=== PATIENT | female | born 1990 | race Caucasian/White ===

== ENCOUNTER 2016-12-08 08:53 | Emergency (ER) | payer MEDICAID ==
[2016-12-08] MEDS ORDERED: NS 0.9% 1000 ML* 1,000 ML IV ONE (09:10)
[2016-12-08] MEDS ORDERED: Morphine INJ* 2 MG/ML 1 ML CARPUJECT IV ONE (09:10)
[2016-12-08] MEDS ORDERED: Ondansetron ODT TAB* 4 MG PO ONE (09:10)
[2016-12-08 09:26] LABS: Hematocrit 30 % (35-47); Hemoglobin 9.6 g/dl (12.0-16.0); Mean Corpuscular HGB Conc 33 g/dl (31-36); Mean Corpuscular Hemoglobin 28 pg (27-31); Mean Corpuscular Volume 85 fL (80-97); Mean Platelet Volume 8 um3 (7.4-10.4); Red Blood Count 3.47 10^6/ul (4.0-5.4); Red Cell Distribution Width 14 % (10.5-15); White Blood Count 23.3 10^3/ul (3.5-10.8)
[2016-12-08 09:27] LABS: Comments Flag Yes
[2016-12-08 09:28] LABS: Add Diff/Slide Review? Slide Review Added
[2016-12-08 09:43] LABS: Albumin 3.3 g/dL (3.2-5.2); BUN/Creatinine Ratio 13.3 (8-20); C Reactive Protein 23.69 mg/L (< 5.00); Calcium 8.4 mg/dL (8.6-10.3); EGFR African American 216.6 (>60); EGFR Non-African American 168.4 (>60); Globulin 3.4 g/dL (2-4); Magnesium 1.7 mg/dL (1.9-2.7); Potassium 3.8 mmol/L (3.5-5.0); Total Bilirubin 0.3 mg/dL (0.2-1.0); Total Protein 6.7 g/dL (6.4-8.9)
--- NOTE | 2016-12-08 10:34 | RAD ---
INDICATION: Chest pain. COMPARISON: There are no prior studies available for comparison. TECHNIQUE: A portable view of the chest was obtained. FINDINGS: Cardiac and mediastinal contours appear to be within normal limits. The lungs are underinflated and grossly clear. No pleural effusion is seen. IMPRESSION: NO EVIDENCE FOR ACUTE FINDING.
--- NOTE | 2016-12-08 10:37 | RAD ---
Indication: 33 week with contractions. Real-time sonography of the was performed. There is a single intrauterine gestation in cephalic presentation. There is a posterior fundal placenta without evidence of placenta previa. heart activity is noted at 1 46 bpm. movement is noted. Amniotic fluid index is 15. The BPD measures 8.2 cm corresponding to gestational age of 33 weeks 1 day. Head to compress measures 29.9 cm corresponding to gestational age of 33 weeks 1 day. Abdominal circumference measures 28.8 cm corresponding to gestational age of 32 weeks 4 days. The femur length measures 6.2 cm corresponding to gestational age of 32 weeks 0 days. Estimated weight is 1992 g. This is at the 24th percentile. IMPRESSION: Single intrauterine gestation with a gestational age of 33 weeks 1 day determined by initial ultrasound. Estimated weight is 1992 g which is at the 24th percentile. Posterior fundal placenta without placenta previa.
[2016-12-08 10:48] VITALS: BP 124/76
[2016-12-08 11:23] LABS: Urine Bacteria Absent (Absent); Urine Bilirubin Negative (Negative); Urine Glucose Negative (Negative); Urine Nitrite Negative (Negative)
--- NOTE | 2016-12-09 15:41 | ED ---
Kay Chandra Auryana, scribed for Demetrius Posadas MD on 12/08/16 at 0938 . - HPI Summary HPI Summary: 26 year old female presents with labor contractions and chest pain. Patient reports that she has abdominal pressure and that the chest pain radiates to the back, shoulders, and up into her neck. She characterizes the pain as sharp and pressure -like. She reports that she has pain on inspiration and has had a cough x3 days. She denies any fever, nausea, or any vomiting. She reports that she has not had any previous episodes of these symptoms with previous pregnancies - with 1 miscarriage - currently 33 weeks . PMHx is significant for cholecystectomy, appendectomy, anxiety, RA (in back with oxycodone Rx). SHx is significant for tobacco use ( few cigarettes a day), but denies any alcohol, or any recreational drug use. Mother reports that she lost a previous child on the same date last year. 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 - History of Current Complaint Chief Complaint: EDOBProblems Stated Complaint: 33 WEEKS PREG Time Seen by Provider: 12/08/16 09:15 Hx Obtained From: Patient Chief Complaint: Concern for Demise, Pain Onset/Duration: Started Hours Ago - TODAY, Still Present Timing: Constant Severity: Moderate Current Severity: Severe Pain Intensity: 9 Location of Pain: Radiates to: - CHEST, SHOULDERS, AND NECK, Suprapubic - PRESSURE Character: Sharp - SHARP CHEST PRESSURE, Other: - PRESSURE-ABDOMINAL Associated Signs and Symptoms: Positive: Back Pain, Other: - PAIN ON INSPIRATION , AND COUGH - Assessment Hx Now: Yes SAB: 0 IEA: 1 - Additional Pertinent History Maternal Blood Type and Rh: O Positive - Allergies/Home Medications Allergies/Adverse Reactions: Allergies Allergy/AdvReac Type Severity Reaction Status Date / Time Adhesive Tape Allergy Rash Verified 12/08/16 12:29 Tramadol AdvReac Nausea And Verified 12/08/16 14:02 Vomiting PMH/Surg Hx/FS Hx/Imm Hx Endocrine/Hematology History: Denies: Hx Diabetes, Hx Thyroid Disease Cardiovascular History: Denies: Hx Hypertension Respiratory History: Denies: Hx Asthma, Hx Chronic Obstructive Pulmonary Disease (COPD) GI History: Reports: Other GI Disorders - Chronic Tonsillitis; Chronic Sinusitis ; Orthostatic Proteinuria Denies: Hx Ulcer Musculoskeletal History: Reports: Hx Back Problems Psychiatric History: Reports: Hx Anxiety, Hx Depression - Surgical History Surgery Procedure, Year, and Place: Cholecystectomy; Has had Endosocpies (Normal ) Infectious Disease History: Denies: Hx Clostridium Difficile, Hx Hepatitis, Hx Human Immunodeficiency Virus (HIV), Hx of Known/Suspected MRSA, Hx Shingles, Hx Tuberculosis, Hx Known/ Suspected VRE, Hx Known/Suspected VRSA, History Other Infectious Disease, Traveled Outside the [place] in Last 30 Days - Family History Known Family History: Positive: Cardiac Disease - [place], Hypertension, Diabetes - Social History Alcohol Use: None Substance Use Type: Reports: None Smoking Status (MU): Light Every Day Tobacco Smoker Type: Cigarettes Amount Used/How Often: 5 CIGS/DAY Length of Time of Smoking/Using Tobacco: 3+ YEARS Review of Systems Constitutional: Negative Negative: Fever Eyes: Negative ENT: Negative Positive: Chest Pain - radiates into the shoulders and neck Positive: Cough, Other - pain on inspiraiton Positive: Abdominal Pain - abdominal pressure. Negative: Vomiting, Nausea Genitourinary: Negative Positive: Other - BACK PAIN Skin: Negative Neurological: Negative Psychological: Normal All Other Systems Reviewed And Are Negative: Yes Physical Exam - Summary Physical Exam Summary: VITAL SIGNS: Reviewed. GENERAL: Patient is a well-developed and nourished female who is lying comfortable in the stretcher. Patient is not in any acute respiratory distress. Patient is anxious. HEAD AND FACE: Normocephalic and atraumatic. EYES: PERRLA, EOMI x 2, No injected conjunctiva. EARS: Hearing grossly intact. Ear canals and tympanic membranes are WNL. MOUTH: Oropharynx within normal limits. NECK: Supple, trachea is midline, no adenopathy, no JVD. CHEST: Symmetric. (+) REPRODUCTION OF CHEST PAIN ON BOTH EH LEFT AND RIGHT SIDE. LUNGS: Clear to auscultation bilaterally. No wheezing or crackles. CVS: RRR, S1 and S2 present, no murmurs or gallops appreciated. ABDOMEN: Soft and distention above the umbilical secondary to . Positive bowel sounds. No rebound no guarding, and no masses palpated. No abdominal bruit or pulsations. EXTREMITIES: FROM in all major joints, no edema, no cyanosis or clubbing. NEURO: Alert and oriented x 3. No acute neurological deficits. Speech is normal. SKIN: Dry and warm. - Physical Exam Triage Information Reviewed: Yes Vital Signs Reviewed: Yes Diagnostics - Vital Signs Vital Signs Temp Pulse Resp BP Pulse Ox 12/08/16 08:54 98.6 F 123 24 138/85 97 - Laboratory Lab Results: Lab Results 12/08/16 12/08/16 12/08/16 Range/Units 09:15 09:15 09:15 WBC 23.3 H (3.5-10.8) 10^3/ul RBC 3.47 L (4.0-5.4) 10^6/ul Hgb 9.6 L (12.0-16.0) g/dl Hct 30 L (35-47) % MCV 85 (80-97) fL MCH 28 (27-31) pg MCHC 33 (31-36) g/dl RDW 14 (10.5-15) % Plt Count 415 (150-450) 10^3/ul MPV 8 (7.4-10.4) um3 Neut % (Auto) 76.1 (38-83) % Lymph % (Auto) 15.6 L (25-47) % Archer % (Auto) 7.4 (1-9) % Eos % (Auto) 0.6 (0-6) % Baso % (Auto) 0.3 (0-2) % Absolute Neuts (auto) 17.7 H (1.5-7.7) 10^3/ul Absolute Lymphs (auto) 3.6 (1.0-4.8) 10^3/ul Absolute Monos (auto) 1.7 H (0-0.8) 10^3/ul Absolute Eos (auto) 0.1 (0-0.6) 10^3/ul Absolute Basos (auto) 0.1 (0-0.2) 10^3/ul Absolute Nucleated RBC 0.01 10^3/ul Nucleated RBC % 0.1 Sodium 132 L (133-145) mmol/L Potassium 3.8 (3.5-5.0) mmol/L Chloride 103 (101-111) mmol/L Carbon Dioxide 20 L (22-32) mmol/L Anion Gap 9 (2-11) mmol/L BUN 6 (6-24) mg/dL Creatinine 0.45 L (0.51-0.95) mg/dL Est GFR ( Amer) 216.6 (>60) Est GFR (Non-Af Amer) 168.4 (>60) BUN/Creatinine Ratio 13.3 (8-20) Glucose 89 (70-100) mg/dL Lactic Acid 0.9 (0.5-2.0) mmol/L Calcium 8.4 L (8.6-10.3) mg/dL Magnesium 1.7 L (1.9-2.7) mg/dL Total Bilirubin 0.30 (0.2-1.0) mg/dL AST 15 (13-39) U/L ALT 10 (7-52) U/L Alkaline Phosphatase 138 H (34-104) U/L C-Reactive Protein 23.69 H (< 5.00) mg/L Total Protein 6.7 (6.4-8.9) g/dL Albumin 3.3 (3.2-5.2) g/dL Globulin 3.4 (2-4) g/dL Albumin/Globulin Ratio 1.0 (1-3) Lipase 22 (11.0-82.0) U/L Beta HCG, Quant 16104.00 mIU/mL Urine Color Urine Appearance Urine pH (5-9) Ur Specific Brooks (1.010-1.030) Urine Protein (Negative) Urine Ketones (Negative) Urine Blood (Negative) Urine Nitrate (Negative) Urine Bilirubin (Negative) Urine Urobilinogen (Negative) Ur Leukocyte Esterase (Negative) Urine WBC (Auto) (Absent) Urine RBC (Auto) (Absent) Ur Squamous Epith Cells (Absent) Urine Bacteria (Absent) Urine Glucose (Negative) 12/08/16 Range/Units 09:40 WBC (3.5-10.8) 10^3/ul RBC (4.0-5.4) 10^6/ul Hgb (12.0-16.0) g/dl Hct (35-47) % MCV (80-97) fL MCH (27-31) pg MCHC (31-36) g/dl RDW (10.5-15) % Plt Count (150-450) 10^3/ul MPV (7.4-10.4) um3 Neut % (Auto) (38-83) % Lymph % (Auto) (25-47) % Archer % (Auto) (1-9) % Eos % (Auto) (0-6) % Baso % (Auto) (0-2) % Absolute Neuts (auto) (1.5-7.7) 10^3/ul Absolute Lymphs (auto) (1.0-4.8) 10^3/ul Absolute Monos (auto) (0-0.8) 10^3/ul Absolute Eos (auto) (0-0.6) 10^3/ul Absolute Basos (auto) (0-0.2) 10^3/ul Absolute Nucleated RBC 10^3/ul Nucleated RBC % Sodium (133-145) mmol/L Potassium (3.5-5.0) mmol/L Chloride (101-111) mmol/L Carbon Dioxide (22-32) mmol/L Anion Gap (2-11) mmol/L BUN (6-24) mg/dL Creatinine (0.51-0.95) mg/dL Est GFR ( Amer) (>60) Est GFR (Non-Af Amer) (>60) BUN/Creatinine Ratio (8-20) Glucose (70-100) mg/dL Lactic Acid (0.5-2.0) mmol/L Calcium (8.6-10.3) mg/dL Magnesium (1.9-2.7) mg/dL Total Bilirubin (0.2-1.0) mg/dL AST (13-39) U/L ALT (7-52) U/L Alkaline Phosphatase (34-104) U/L C-Reactive Protein (< 5.00) mg/L Total Protein (6.4-8.9) g/dL Albumin (3.2-5.2) g/dL Globulin (2-4) g/dL Albumin/Globulin Ratio (1-3) Lipase (11.0-82.0) U/L Beta HCG, Quant mIU/mL Urine Color Jolene Urine Appearance Cloudy Urine pH 6.0 (5-9) Ur Specific Brooks 1.014 (1.010-1.030) Urine Protein Negative (Negative) Urine Ketones Negative (Negative) Urine Blood 1+ H (Negative) Urine Nitrate Negative (Negative) Urine Bilirubin Negative (Negative) Urine Urobilinogen Negative (Negative) Ur Leukocyte Esterase 3+ H (Negative) Urine WBC (Auto) 1+(6-10/hpf) H (Absent) Urine RBC (Auto) 1+(3-5/hpf) H (Absent) Ur Squamous Epith Cells Present H (Absent) Urine Bacteria Absent (Absent) Urine Glucose Negative (Negative) Result Diagrams: 12/08/16 09:15 12/08/16 09:15 Lab Statement: Any lab studies that have been ordered have been reviewed, and results considered in the medical decision making process. - Radiology CXR Xray Interpretation: No Acute Changes Radiology Interpretation Completed By: Radiologist - Additional Comments Diagnostic Additional Comments: US PREG LIMITED IMPRESSION: Single intrauterine gestation with a gestational age of 33 weeks 1 day determined by initial ultrasound. Estimated weight is 1992 g which is at the 24th percentile. Posterior fundal placenta without placenta previa. Course/Dx - Course Assessment/Plan: 26 year old female presents with labor contractions and chest pain. Patient reports that she has abdominal pressure and that the chest pain radiates to the back, shoulders, and up into her neck. She characterizes the pain as sharp and pressure -like. She reports that she has pain on inspiration and has had a cough x3 days. She denies any fever, nausea, or any vomiting. She reports that she has not had any previous episodes of these symptoms with previous pregnancies - with 1 miscarriage - currently 33 weeks . PMHx is significant for cholecystectomy, appendectomy, anxiety, RA (in back with oxycodone Rx). SHx is significant for tobacco use ( few cigarettes a day), but denies any alcohol, or any recreational drug use. Mother reports that she lost a previous child on the same date last year. Test results show a leukocytosis of 23.3 with mild anemia, sodium 132, calcium 8.4, and Mg 1.7. UA is contaminated. In ED course, I decide to give the patient IV fluids and even though the patient is , I decided to do a CXR since she is having chest pain. We shielded the patient and the baby and the CXR shows NAD. Due to patient s pain, we administered morphine. US- IMPRESSION: Single intrauterine gestation with a gestational age of 33 weeks 1 day determined by initial ultrasound. Estimated weight is 1992 g which is at the 24th percentile. Posterior fundal placenta without placenta previa. In ED course, the nurse from L&D came to assess the patient and reports that the patient is having contractions. Therefore I discussed the case with Dr. Mendenhall, and he requested for the patient be discharged to L&D for further management. The patient is hemodynamically stable and A&Ox3. - Diagnoses Provider Diagnoses: Abdominal cramping, Chest pain, Threatened - Provider Notifications Discussed Care Of Patient With: Angel Mendenhall Time Discussed With Above Provider: 11:01 - patient will be seen by Dr. Mendenhall on the L&D floor for further management Discharge - Discharge Plan Condition: Stable Disposition: ADMITTED TO [facility] The documentation as recorded by the Kay mario Auryana accurately reflects the service I personally performed and the decisions made by me, Demetrius Posadas MD.
== END 2016-12-08 11:13 | disposition short-term general hospital (02) ==
LOC: ED 08:53
DX: O20.0 Threatened abortion (principal); Z3A.33 33 weeks gestation of pregnancy; R07.9 Chest pain, unspecified; R05 Cough; R10.9 Unspecified abdominal pain; M54.9 Dorsalgia, unspecified
CPT/HCPCS: 36415; 71010; 76815; 80053; 81003; 81015; 83605; 83690; 83735; 84702; 85025; 86140; 87086; 96374; 99282; A9270-GY; J2270

== ENCOUNTER 2018-02-26 16:25 | Emergency (ER) | payer OTHER ==
[2018-02-26] MEDS ORDERED: Ketorolac INJ* 30 MG/ML 1 ML VIAL IM ONE (18:00)
[2018-02-26 18:58] VITALS: BP 116/61
--- NOTE | 2018-02-26 18:58 | UC ---
Respiratory Complaint HPI - HPI Summary HPI Summary: 27-year-old female with history of rheumatoid arthritis and managed with Humira presents with a week and a half of intermittent fever, nasal congestion, sinus pressure, postnasal drip, and a productive cough for yellow sputum. States this morning her fever spiked to 103.9 F and she developed some body aches and headache. Denies chest pain, shortness of breath, abdominal pain, nausea, vomiting, or diarrhea. - History of Current Complaint Chief Complaint: UCGeneralIllness Stated Complaint: ELEVATED TEMP Time Seen by Provider: 02/26/18 17:36 Hx Obtained From: Patient Hx Last Menstrual Period: [id number] Onset/Duration: Gradual Onset, Lasting Days - 10 Severity Currently: Moderate Pain Intensity: 8 Character: Cough: Productive, Sputum Description: - yellow Aggravating Factors: Nothing Alleviating Factors: Nothing Associated Signs And Symptoms: Positive: Fever, Chills, URI, Nasal Congestion, Sinus Discomfort. Negative: Dyspnea, Pleuritic Chest Pain, Wheezing, Hemoptysis , Dizziness - Allergies/Home Medications Allergies/Adverse Reactions: Allergies Allergy/AdvReac Type Severity Reaction Status Date / Time Adhesive Tape Allergy Rash Verified 02/26/18 17:08 tramadol Allergy Nausea And Verified 02/26/18 17:08 Vomiting Home Medications: Home Medications Acetaminophen TAB* [Tylenol TAB*] 975 mg PO Q4H PRN 02/26/18 [History Confirmed 02/26/18] Adalimumab (NF) [Humira Pen (NF)] 40 mg SUBCUT 02/26/18 [History] Ibuprofen TAB* [Advil TAB*] 200 mg PO Q6H PRN 02/26/18 [History Confirmed ] PMH/Surg Hx/FS Hx/Imm Hx - Additional Past Medical History Additional PMH: Rheumatoid arthritis Previously Healthy: Yes - Surgical History Surgical History: Yes Surgery Procedure, Year, and Place: appendix, teeth, tonsils,. Cholecystectomy ; Has had Endoscopies (Normal) - Family History Family History: Noncontributory - Social History Occupation: Employed Full-time Lives: With Family Alcohol Use: None Substance Use Type: None Substance Use Comment - Amount & Last Used: percocett, xanax, prozac Smoking Status (MU): Light Every Day Tobacco Smoker Type: Cigarettes Amount Used/How Often: 5 CIGS/DAY Length of Time of Smoking/Using Tobacco: 3+ YEARS Have You Smoked in the Last Year: Yes Household Exposure Type: Cigarettes Review of Systems Constitutional: Fever, Chills, Fatigue Skin: Negative Eyes: Negative ENT: Nasal Discharge, Sinus Congestion Respiratory: Cough Cardiovascular: Negative Gastrointestinal: Negative Is Patient Immunocompromised?: Yes - Humira All Other Systems Reviewed And Are Negative: Yes Physical Exam Triage Information Reviewed: Yes Appearance: No Pain Distress, Well-Nourished, Ill-Appearing Vital Signs: Initial Vital Signs Temp 101.9 F 02/26/18 17:02 Pulse 109 02/26/18 17:02 Resp 18 02/26/18 17:02 BP 135/88 02/26/18 17:02 Pulse Ox 100 02/26/18 17:02 Vital Signs Reviewed: Yes Eyes: Positive: Conjunctiva Clear. Negative: Discharge ENT: Positive: Pharyngeal erythema - Mild with cobblestoning, Nasal congestion, TMs normal, Uvula midline. Negative: Nasal drainage, Tonsillar swelling, Tonsillar exudate, Trismus, Muffled voice, Hoarse voice, Sinus tenderness Neck: Positive: Supple, Nontender, No Lymphadenopathy Respiratory: Positive: Lungs clear, Normal breath sounds, No respiratory distress Cardiovascular: Positive: RRR, No Murmur, Pulses Normal Abdomen Description: Positive: Nontender, No Organomegaly, Soft Neurological: Positive: Alert Skin Exam: Normal UC Diagnostic Evaluation - Laboratory O2 Sat by Pulse Oximetry: 100 - Radiology Xray Interpretation: Positive (See Comments) Radiology Interpretation Completed By: ED Physician - RML pneumonia Respiratory Course/Dx - Course Course Of Treatment: 27 year old female with 10 day history of intermittent fever, URI symptoms, and productive cough. She reports spiked fever of 103.9 F this morning. She is on Humira for RA. Her CXR revealed a consolidation in the right lung consistent with a pneumonia. Her temperature return to normal limits with ketoralac and her VSS were stable. Will treat her outpatient with course of doxycycline and close follow up with PCP. Reviewed warning symptoms requiring immediate evaluation in the emergency room. Patient verbalized understanding and agrees with POC. - Differential Dx/Diagnosis Provider Diagnoses: RML pneumonia Discharge - Sign-Out/Discharge Documenting (check all that apply): Patient Departure All imaging exams completed and their final reports reviewed: No - Discharge Plan Condition: Stable Disposition: HOME Prescriptions: Doxycycline Hyclate 100 mg PO BID #20 tablet Patient Education Materials: Community Acquired Pneumonia (ED) Referrals: Antonina Jung MD [Primary Care Provider] - 3 Days (You need to be seen by your primary care provider Wednesday or Wednesday for recheck.) Additional Instructions: Start doxycycline 1 tab twice a day for 10 days. You were given your first dose in the clinic so you may start this tomorrow. Do not take this medication with any milk products as it will affect the absorption of the antibiotic. He should also take precautions if you have to be incised this medication will cause you to burn more easily. Drink plenty of fluids especially if you are running fever. Continue taking acetaminophen (Tylenol) or ibuprofen (Advil, Motrin) according to directions as needed for aches and pains fever. Do not take any further doses of your Humira until you have been cleared to do so by her primary care provider. You need to follow-up with your primary care provider on Wednesday or Wednesday for a recheck. Seek immediate medical attention in the emergency room if you have a persistent fever greater than 100.5 F despite taking acetaminophen or ibuprofen, he developed any chest pain, shortness of breath, become weak or dizzy, or have any worsening of symptoms. - Billing Disposition and Condition Condition: STABLE Disposition: Home - Attestation Statements Provider Attestation: I was available for consult. This patient was seen by the TRAVIS. The patient was not presented to, seen by, or examined by me. -Mayra
[2018-02-26] MEDS ORDERED: DOXYcycline CAP(*) 100 MG PO ONE (19:00)
--- NOTE | 2018-02-27 07:49 | RAD ---
INDICATION: Cough, fever, fatigue, weakness. Chest pain. COMPARISON: December 08, 2016 TECHNIQUE: Dual energy PA and routine lateral views of the chest were obtained. REPORT: Alveolar consolidation involving the anterior segment of the RIGHT upper lobe approximating the minor fissure. Negative for pleural effusion or pneumothorax. The heart, pulmonary vasculature, and mediastinal contours are unremarkable. Gallbladder fossa level surgical clips. IMPRESSION: #. Pneumonia involving the anterior segment of the RIGHT upper lobe. R2
--- NOTE | 2018-02-27 08:46 | UC ---
- Progress Note Progress Note: Patient Name: TD MARTINES Medical Record#: [id number] Ordering Physician: Augustine Mccann NP Acct.#: [id number] : 1990 Age: 27 Sex: F Location: [facility] Exam Date: 02/26/181758 ADM Status: DEP ER Order Information: CHEST PA & LAT 2 VWS Accession Number: [id number] CPT: 39720 INDICATION: Cough, fever, fatigue, weakness. Chest pain. COMPARISON: December 08, 2016 TECHNIQUE: Dual energy PA and routine lateral views of the chest were obtained. REPORT: Alveolar consolidation involving the anterior segment of the RIGHT upper lobe approximating the minor fissure. Negative for pleural effusion or pneumothorax. The heart, pulmonary vasculature, and mediastinal contours are unremarkable. Gallbladder fossa level surgical clips. IMPRESSION: #. Pneumonia involving the anterior segment of the RIGHT upper lobe. R2 <Electronically signed by Demetrius Hussein MD in [place]> 02/27/18745 Dictated By: Demetrius Hussein MD Dictated Date/Time: 02/27/18745 Transcribed Date/Time: 02/27/18743 Copy to: CC:Augustine Mccann NP; Antonette Ling MD; Antonina Jung MD Imaging - [facility] Imaging - [facility] Urgent [facility] Department [address] [address] ph ([phone]) ph ([phone]) ph ([phone]) This report is only to be considered final once signed by the Provider(s) as displayed in the "<Electronically Signed by >" field (s). Absence of a signature indicates the report is in a draft status and still needs to be finalized. In the event this document was created by someone other than the signing Provider, the individual initiating the document will be listed in the "Entered by:" or "Dictated by:" gabriel. 1 of 1 Discharge - Sign-Out/Discharge Documenting (check all that apply): Post-Discharge Follow Up All imaging exams completed and their final reports reviewed: Yes - Discharge Plan Condition: Stable Disposition: HOME Prescriptions: Doxycycline Hyclate 100 mg PO BID #20 tablet Patient Education Materials: Community Acquired Pneumonia (ED) Referrals: Antonina Jung MD [Primary Care Provider] - 3 Days (You need to be seen by your primary care provider Wednesday or Wednesday for recheck.) Additional Instructions: Start doxycycline 1 tab twice a day for 10 days. You were given your first dose in the clinic so you may start this tomorrow. Do not take this medication with any milk products as it will affect the absorption of the antibiotic. He should also take precautions if you have to be incised this medication will cause you to burn more easily. Drink plenty of fluids especially if you are running fever. Continue taking acetaminophen (Tylenol) or ibuprofen (Advil, Motrin) according to directions as needed for aches and pains fever. Do not take any further doses of your Humira until you have been cleared to do so by her primary care provider. You need to follow-up with your primary care provider on Wednesday or Wednesday for a recheck. Seek immediate medical attention in the emergency room if you have a persistent fever greater than 100.5 F despite taking acetaminophen or ibuprofen, he developed any chest pain, shortness of breath, become weak or dizzy, or have any worsening of symptoms. - Billing Disposition and Condition Condition: STABLE Disposition: Home
--- NOTE | 2018-02-27 14:38 | UC ---
- EKG/XRAY/CT Xray Comments: wet read correct Discharge - Sign-Out/Discharge Documenting (check all that apply): Post-Discharge Follow Up All imaging exams completed and their final reports reviewed: Yes - Discharge Plan Condition: Stable Disposition: HOME Prescriptions: Doxycycline Hyclate 100 mg PO BID #20 tablet Patient Education Materials: Community Acquired Pneumonia (ED) Referrals: Antonina Jung MD [Primary Care Provider] - 3 Days (You need to be seen by your primary care provider Wednesday or Wednesday for recheck.) Additional Instructions: Start doxycycline 1 tab twice a day for 10 days. You were given your first dose in the clinic so you may start this tomorrow. Do not take this medication with any milk products as it will affect the absorption of the antibiotic. He should also take precautions if you have to be incised this medication will cause you to burn more easily. Drink plenty of fluids especially if you are running fever. Continue taking acetaminophen (Tylenol) or ibuprofen (Advil, Motrin) according to directions as needed for aches and pains fever. Do not take any further doses of your Humira until you have been cleared to do so by her primary care provider. You need to follow-up with your primary care provider on Wednesday or Wednesday for a recheck. Seek immediate medical attention in the emergency room if you have a persistent fever greater than 100.5 F despite taking acetaminophen or ibuprofen, he developed any chest pain, shortness of breath, become weak or dizzy, or have any worsening of symptoms. - Billing Disposition and Condition Condition: STABLE Disposition: Home
== END 2018-02-26 19:27 | disposition home or self-care (01) ==
LOC: UCEAST 16:25
DX: J18.9 Pneumonia, unspecified organism (principal); M06.9 Rheumatoid arthritis, unspecified
CPT/HCPCS: 71046; 96372; 99212; A9270-GY; G0463; J1885

== ENCOUNTER 2018-12-31 18:47 | Emergency (ER) | payer SELFPAY ==
[2018-12-31] MEDS ORDERED: Ketorolac INJ* 30 MG/ML 1 ML VIAL IM ONE (19:41)
[2018-12-31 19:59] LABS: Rapid Strep Molecular Negative (Negative)
--- NOTE | 2018-12-31 19:59 | ED ---
Throat Pain/Nasal Congestion - HPI Summary HPI Summary: 28 year old female presents with sore throat and white spots in mouth for the past couple days. She is on an oral steroid for her RA. She's had a tonsillectomy in the past. She states the white spots are getting worse. She states her mouth feels dry. She states she also has pain in the area. She admits to headache and some sinus congestion. Admits occasional cough. - History of Current Complaint Chief Complaint: EDThroatPain Time Seen by Provider: 12/31/18 19:25 - Allergies/Home Medications Allergies/Adverse Reactions: Allergies Allergy/AdvReac Type Severity Reaction Status Date / Time Adhesive Tape Allergy Rash Verified 12/31/18 19:00 tramadol Allergy Nausea And Verified 12/31/18 19:00 Vomiting PMH/Surg Hx/FS Hx/Imm Hx Endocrine/Hematology History: Denies: Hx Diabetes, Hx Thyroid Disease Cardiovascular History: Denies: Hx Hypertension Respiratory History: Denies: Hx Asthma, Hx Chronic Obstructive Pulmonary Disease (COPD) GI History: Reports: Other GI Disorders - Chronic Tonsillitis; Chronic Sinusitis ; Orthostatic Proteinuria Denies: Hx Ulcer Musculoskeletal History: Reports: Hx Back Problems Psychiatric History: Reports: Hx Anxiety, Hx Depression - Surgical History Surgery Procedure, Year, and Place: appendix, teeth, tonsils,. Cholecystectomy ; Has had Endoscopies (Normal) - Immunization History Immunizations Up to Date: Yes Infectious Disease History: No Infectious Disease History: Denies: Hx Clostridium Difficile, Hx Hepatitis, Hx Human Immunodeficiency Virus (HIV), Hx of Known/Suspected MRSA, Hx Shingles, Hx Tuberculosis, Hx Known/ Suspected VRE, Hx Known/Suspected VRSA, History Other Infectious Disease, Traveled Outside the [place] in Last 30 Days - Family History Family History: Noncontributory - Social History Alcohol Use: None Substance Use Type: Reports: None Substance Use Comment - Amount & Last Used: percocett, xanax, prozac Smoking Status (MU): Light Every Day Tobacco Smoker Type: Cigarettes Amount Used/How Often: 5 CIGS/DAY Length of Time of Smoking/Using Tobacco: 3+ YEARS Have You Smoked in the Last Year: Yes Review of Systems Negative: Fever Positive: Sore Throat, Other - white spots on tongue Negative: Chest Pain Negative: Shortness Of Breath All Other Systems Reviewed And Are Negative: Yes Physical Exam Triage Information Reviewed: Yes Vital Signs On Initial Exam: Initial Vitals Temp Pulse Resp BP Pulse Ox 99.7 F 104 14 154/93 97 12/31/18 18:51 12/31/18 18:51 12/31/18 18:51 12/31/18 18:51 12/31/18 18:51 Vital Signs Reviewed: Yes Appearance: Positive: Well-Appearing Skin: Positive: Warm, Dry Head/Face: Positive: Normal Head/Face Inspection Eyes: Positive: Normal, EOMI, JACKLYN, Conjunctiva Clear ENT: Positive: TMs normal, Uvula midline, Other - white spots on tongue and pharynx that are easily scraped off. Negative: Trismus, Muffled voice Respiratory/Lung Sounds: Positive: Clear to Auscultation, Breath Sounds Present Cardiovascular: Positive: Normal, RRR Abdomen Description: Positive: Nontender, Soft Bowel Sounds: Positive: Present Musculoskeletal: Positive: Normal Neurological: Positive: Normal Psychiatric: Positive: Normal Diagnostics - Vital Signs Vital Signs Temp Pulse Resp BP Pulse Ox 12/31/18 18:51 99.7 F 104 14 154/93 97 - Laboratory Lab Statement: Any lab studies that have been ordered have been reviewed, and results considered in the medical decision making process. EENT Course/Dx - Course Course Of Treatment: 28 year old female presents with sore throat and white spots in mouth for the past couple days. She is on an oral steroid for her RA. She's had a tonsillectomy in the past. She states the white spots are getting worse. She states her mouth feels dry. She states she also has pain in the area. She admits to headache and some sinus congestion. Admits occasional cough. On exam patient has white spots on tongue and pharynx. white spots are easily removed. Strep is negative. Discuss likely has thrush. We'll treat with fluconzaole. Told to follow up with primary about switching steroid medication. Patient understands agrees plan. - Differential Diagnoses Differential Diagnoses: Pharyngitis, Sinusitis, Other - thrush - Diagnoses Provider Diagnoses: Thrush Discharge - Sign-Out/Discharge Documenting (check all that apply): Patient Departure Patient Received Moderate/Deep Sedation with Procedure: No - Discharge Plan Condition: Good Disposition: HOME Prescriptions: Fluconazole 100 MG TAB* [Diflucan 100 MG TAB*] 100 mg PO DAILY #10 tab Patient Education Materials: Oral Candidiasis (ED) Referrals: nAtonina Jung MD [Primary Care Provider] - Additional Instructions: take fluconazole once a day for 10 days Take tyenlol as needed for pain Follow up with primary within 5 days Return to ED if develop any new or worsening symptoms - Billing Disposition and Condition Condition: GOOD Disposition: Home
[2018-12-31] MEDS ORDERED: Fluconazole 100 MG TAB* TAB PO ONE (20:08)
[2018-12-31 20:59] VITALS: BP 129/73
== END 2018-12-31 20:58 | disposition home or self-care (01) ==
LOC: ED 18:47
DX: B37.0 Candidal stomatitis (principal); R51 Headache; R09.81 Nasal congestion; R05 Cough; M06.9 Rheumatoid arthritis, unspecified; Z88.5 Allergy status to narcotic agent; Z91.048 Other nonmedicinal substance allergy status; F17.210 Nicotine dependence, cigarettes, uncomplicated
CPT/HCPCS: 87651; 96372; 99283; A9270-GY; J1885

== ENCOUNTER 2019-02-25 12:14 | Emergency (ER) | payer MEDICAID ==
--- NOTE | 2019-02-25 12:34 | ED ---
Respiratory - HPI Summary HPI Summary: The patient is a 28 y/o F presenting to [facility] with a chief complaint of persistent respiratory symptoms onset one week ago. She reports that her son was diagnosed with pneumonia yesterday, and her daughter also has a sinus infection, so she is concerned as her symptoms have continued. She c/o fevers up to 103F, rhinorrhea and productive cough with yellow-green phlegm, and wheezing. She denies any chest pain. Currently, her symptoms are rated 7/10 in severity. LNMP: 3 weeks ago. PMHx: chronic tonsillitis, chronic sinusitis, cholecystectomy, appendectomy, wisdom teeth removal. Light every day cigarette smoker, no EtOH, no substance use. Medications reviewed. Allergies noted. - History of Current Complaint Chief Complaint: EDFluSymptoms Stated Complaint: GENERAL ILLNESS PER PT Time Seen by Provider: 02/25/19 12:21 Hx Obtained From: Patient Onset/Duration: Gradual Onset, Lasting Days - one week, Still Present Initial Severity: Mild Current Severity: Moderate Pain Intensity: 7 Character: Cough (Productive) Sputum Amount: Small Sputum Color: Yellow, Green Aggravating Factor(s): Nothing Alleviating Factor(s): Nothing Associated Signs and Symptoms: Fever - 103F, Wheezing, Nasal Congestion - Allergy/Home Medications Allergies/Adverse Reactions: Allergies Allergy/AdvReac Type Severity Reaction Status Date / Time Adhesive Tape Allergy Rash Verified 12/31/18 19:00 tramadol Allergy Nausea And Verified 12/31/18 19:00 Vomiting PMH/Surg Hx/FS Hx/Imm Hx Endocrine/Hematology History: Denies: Hx Diabetes, Hx Thyroid Disease Cardiovascular History: Denies: Hx Hypercholesterolemia, Hx Hypertension Respiratory History: Denies: Hx Asthma, Hx Chronic Obstructive Pulmonary Disease (COPD) GI History: Reports: Other GI Disorders - Chronic Tonsillitis; Chronic Sinusitis ; Orthostatic Proteinuria Denies: Hx Ulcer Musculoskeletal History: Reports: Hx Back Problems Psychiatric History: Reports: Hx Anxiety, Hx Depression - Surgical History Surgical History: Yes Surgery Procedure, Year, and Place: appendix, teeth, tonsils,. Cholecystectomy ; Has had Endoscopies (Normal) Infectious Disease History: No Infectious Disease History: Denies: Hx Clostridium Difficile, Hx Hepatitis, Hx Human Immunodeficiency Virus (HIV), Hx of Known/Suspected MRSA, Hx Shingles, Hx Tuberculosis, Hx Known/ Suspected VRE, Hx Known/Suspected VRSA, History Other Infectious Disease, Traveled Outside the [place] in Last 30 Days - Family History Known Family History: Negative: Diabetes - Social History Alcohol Use: None Hx Substance Use: No Substance Use Type: Reports: None Substance Use Comment - Amount & Last Used: percocett, xanax, prozac Hx Tobacco Use: Yes Smoking Status (MU): Light Every Day Tobacco Smoker Type: Cigarettes Amount Used/How Often: 5 CIGS/DAY Length of Time of Smoking/Using Tobacco: 3+ YEARS Have You Smoked in the Last Year: Yes Review of Systems Positive: Fever - 103F Positive: Nasal Discharge, Other - nasal congestion Negative: Chest Pain Positive: Cough - productive, Other - wheeze All Other Systems Reviewed And Are Negative: Yes Physical Exam - Summary Physical Exam Summary: VITAL SIGNS: Reviewed. GENERAL: Patient is a well-developed and nourished female who is lying comfortable in the stretcher. Patient is not in any acute respiratory distress. HEAD AND FACE: No signs of trauma. No ecchymosis, hematomas or skull depressions. No sinus tenderness. Runny nose. Nasal congestion. EYES: PERRLA, EOMI x 2, No injected conjunctiva, no nystagmus. EARS: Hearing grossly intact. Ear canals and tympanic membranes are within normal limits. Positive maxillary sinus tenderness. Positive green nasal discharge MOUTH: Oropharynx within normal limits. NECK: Supple, trachea is midline, no adenopathy, no JVD, no carotid bruit, no c- spine tenderness, neck with full ROM. CHEST: Symmetric, no tenderness at palpation. LUNGS: Clear to auscultation bilaterally. No wheezing or crackles. CVS: Regular rate and rhythm, S1 and S2 present, no murmurs or gallops appreciated. ABDOMEN: Soft, non-tender. No signs of distention. No rebound, no guarding, and no masses palpated. Bowel sounds are normal. EXTREMITIES: FROM in all major joints, no edema, no cyanosis or clubbing. NEURO: Alert and oriented x 3. No acute neurological deficits. Speech is normal and follows commands. SKIN: Dry and warm. Triage Information Reviewed: Yes Vital Signs On Initial Exam: Initial Vitals Temp Pulse Resp BP Pulse Ox 97.8 F 115 16 158/99 97 02/25/19 12:17 02/25/19 12:17 10/05/19 12:17 02/25/19 12:17 02/25/19 12:17 Vital Signs Reviewed: Yes Procedures - Sedation Patient Received Moderate/Deep Sedation with Procedure: No Diagnostics - Vital Signs Vital Signs Temp Pulse Resp BP Pulse Ox 02/25/19 12:17 97.8 F 115 16 158/99 97 - Laboratory Result Diagrams: 02/25/19 12:35 02/25/19 12:35 Lab Statement: Any lab studies that have been ordered have been reviewed, and results considered in the medical decision making process. - Radiology Chest X-ray Radiology Interpretation Completed By: Radiologist Summary of Radiographic Findings: Impression: 1. No evidence for pneumonia. No evidence for acute intrathoracic disease. 2. Complete resolution of previous airspace consolidation at the RIGHT upper lobe compared with the 2018 exam. ED physician has reviewed this report. Re-Evaluation - Re-Evaluation First Eval Re-Evaluation Time: 13:05 Change: Unchanged Comment: We discussed all results and plan for discharge home. Disposition - Course Assessment/Plan: Patient is a 28 y/o F with chief complaint of persistent respiratory symptoms including rhinorrhea, productive cough, wheezing, and fever without chest pain onset one week ago. Blood work without a significant abnormality except for WBCs of 16.9, increase in neutrophils, Sodium 132, Chloride 96, CRP 173.92. Influenza A and B Is Negative. Chest X-Ray Impression: Negative for Pneumonia. I believe the patient has an acute sinusitis; therefore the patient will be given Augmentin. I discussed all the findings and test results with the patient. Patient was instructed to return to the emergency room immediately if any of the symptoms return or worsen. Plan of care was discussed with the patient and understands and agrees. All questions were answered at patient satisfaction. There were no further complaints or concerns. Lung exam before discharge: CTA B/L. Good air exchange. No wheezing or crackles heard. CVS: S1 and S2 present. No murmurs appreciated. Patient is alert and oriented x 3. Patient is hemodynamically stable. Patient will be discharged home with follow up with PCP in the next 2-3 days. - Diagnoses Provider Diagnoses: Acute sinusitis Discharge ED - Sign-Out/Discharge Documenting (check all that apply): Patient Departure - Patient will be discharged home. - Discharge Plan Condition: Stable Disposition: HOME Prescriptions: Amoxicillin/Clavulanate TAB* [Augmentin TAB 875*] 875 mg PO BID #20 tab Patient Education Materials: Sinusitis (ED) Referrals: Antonina Jung MD [Primary Care Provider] - 3 Days Additional Instructions: Please medications as prescribed. Follow up with your primary care provider in 2-3 days. Return to the emergency department for any new or worsening symptoms. - Billing Disposition and Condition Condition: STABLE Disposition: Home - Attestation Statements Document Initiated by Jody: Yes Documenting Scribe: Emma Tolentino Provider For Whom Jody is Documenting (Include Credential): Dr. Demetrius Posadas MD Scribe Attestation: Emma Chandra scribed for Dr. Demetrius Posadas MD on 02/26/19 at 0903. Scribe Documentation Reviewed: Yes Provider Attestation: The documentation as recorded by the Emma mario accurately reflects the service I personally performed and the decisions made by me, Dr. Demetrius Posadas MD Status of Scribe Document: Viewed
[2019-02-25 12:41] LABS: ABS Basophils 0.1 10^3/ul (0-0.2); ABS Eosinophils 0.1 10^3/ul (0-0.6); ABS Lymphocytes 2.1 10^3/ul (1.0-4.8); ABS Monocytes 1.3 10^3/ul (0-0.8); ABS Neutrophils 13.3 10^3/ul (1.5-7.7); Eosinophil % 0.4 %; Hematocrit 39 % (35-47); Hemoglobin 12.9 g/dL (12.0-16.0); Lymphocyte % 12.7 %; Mean Corpuscular HGB Conc 34 g/dL (31-36); Mean Corpuscular Hemoglobin 27 pg (27-31); Mean Corpuscular Volume 81 fL (80-97); Mean Platelet Volume 7.7 fL (7.4-10.4); Platelet Count 321 10^3/uL (150-450); Red Blood Count 4.73 10^6 /uL (3.70-4.87); Red Cell Distribution Width 17 % (10-15); White Blood Count 16.9 10^3/uL (3.5-10.8)
--- OUTSIDE RECORDS SUMMARY | 2019-02-25 12:42 | XMS REPORT | Summary of Care ---
:1990 Author Organization [facility] Address [address] [place] [address] Care Team Providers Name Role Phone Antonina Jung MD Primary Care Provider Reason for Visit Reason Comments Emesis c/o vomiting with no appetite x2 months with weight loss after losing insurance and stopping medications. States believes related to withdrawal. Would like to discuss zofran. Also c/o fever and chills. Encounter Details Date Type Department Care Team Description 02/11/2019 Office Visit [facility] Miguel Lucero, Gastroesophageal reflux disease, esophagitis presence not specified (Primary Dx); Practice [address] [facility] Nausea and vomiting, intractability of vomiting not specified, unspecified vomiting type; [address] Anxiety; [place] [address] [place] [address] Nausea; [phone] Weight loss Allergies Active Allergy Reactions Severity Noted Date Comments Tramadol MACHINE SPRING FORMER Reaction, GI Reaction 05/26/2016 Vomiting & shaking documented as of this encounter (statuses as of 02/11/2019) Medications Medication Sig Dispensed Refills Start Date End Date Status foliC acid 1 MG 0 07/07/2016 Active Oral Tab predniSONE Take 5 mg by 0 Active (DELTASONE) 5 MG mouth DAILY. Oral Tab MELOXICAM PO Take 7.5 mg by 0 Active mouth TWO TIMES DAILY NEEDED. Methotrexate 2.5 Take 15 mg by 0 Active MG Oral Tab mouth EVERY 7 DAYS. Quetiapine take 1 tablet 30 Tab 2 09/22/2017 Active Fumarate by mouth at (SEROQUEL) 50 MG bedtime Oral TabIndications: Other depression, Anxiety adalimumab Inject 40 mg 0 Active (HUMIRA PEN) 40 beneath the MG/0.8ML skin. Subcutaneous Pen-injector Kit albuterol HFA Take 2 Puffs by 1 Inhaler 0 03/03/2018 Active (VENTOLIN HFA) inhalation 108 (90 Base) EVERY FOUR MCG/ACT HOURS NEEDED Inhalation Aero (short of SolnIndications: breath). SOB (shortness of breath) fluoxetine Take 1 Cap by 90 Cap 5 11/29/2018 Active (PROZAC) 20 MG mouth DAILY. Oral Cap Omeprazole Take 20 mg by 30 Cap 5 11/29/2018 Active delayed rel cap mouth DAILY. 20 MG Oral CAPSULE DELAYED RELEASE quetiapine Take 1 Tab by 30 Tab 5 11/29/2018 Active (SEROQUEL) 25 MG mouth EVERY Oral Tab BEDTIME. ALPRAZolam Take 1 Tab by 10 Tab 0 02/11/2019 Active (XANAX) 0.5 MG mouth DAILY Oral NEEDED TabIndications: (anxiety). Max Anxiety Daily Amount: 0.5 mg. ondansetron Take 1 Tab by 12 Tab 2 02/11/2019 Active (ZOFRAN ODT) 4 MG mouth EVERY SIX Oral TABLET HOURS NEEDED DISPERSIBLEIndica (nausea). tions: Nausea ALPRAZolam Take 1 Tab by 60 Tab 0 06/08/2018 Discontinued (XANAX) 0.5 MG mouth TWICE 9 Oral Tab DAILY. Max Daily Amount: 2 Tabs. ondansetron Take 1 Tab by 12 Tab 2 09/27/2018 Discontinued (ZOFRAN ODT) 4 MG mouth EVERY SIX 9 (Reorder) Oral TABLET HOURS NEEDED DISPERSIBLEIndica (nausea). tions: Nausea ALPRAZolam Take 1 Tab by 30 Tab 0 12/09/2018 Discontinued (XANAX) 0.5 MG mouth EVERY 9 (Reorder) Oral Tab TWELVE HOURS NEEDED (anxiety). Max Daily Amount: 1 mg. 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 Anxiety 12/01/2010 Depression 12/01/2010 Chronic tonsillitis 10/17/2008 Orthostatic proteinuria Overview: evaluated at [facility] documented as of this encounter (statuses as of 02/11/2019) Resolved Problems Problem Noted Date Resolved Date RA (rheumatoid arthritis) 02/19/2017 documented as of this encounter (statuses as of 02/11/2019) Immunizations Name Administration Dates Next Due DTAP Vaccine 09/17/1995, 01/04/1992, 01/19/1991, 1990, 1990 HIB Vaccine 11/03/1991, 01/19/1991, 1990, 1990 Hepatitis B Vaccine Peds 10/05/2002, 06/01/2002 Human Papillomavirus 02/08/2007, 10/08/2006, 08/09/2006 Influenza (IM) Preservative Free 01/13/2018, 02/19/2017, 02/13/2016, 06/09/2013, 03/31/2012 MENINGOCOCCAL CONJUGATE VACCINE 12/08/2004 MMR VACCINE 09/17/1995, 11/03/1991 Polio - Inactivated Vaccine 09/17/1995, 01/04/1992, 1990, 1990 TETANUS & DIPHTHERIA TOXOID (OVER 7 12/10/2005 YRS) Tuberculin Skin Test 07/20/1991 documented as of this encounter Social History Tobacco Use Types Packs/Day Years Used Date Never Smoker Smokeless Tobacco: Never Used Alcohol Use Drinks/Week oz/Week Comments No 0 Standard drinks or equivalent 0.0 Sex Assigned at Date Recorded Not on file Job Start Date Occupation Industry Not on file Not on file Not on file Travel History Travel Start Travel End No recent travel history available. documented as of this encounter Last Filed Vital Signs Vital Sign Reading Time Taken Comments Blood Pressure 120/72 02/11/2019 8:53 AM EDT Pulse 100 02/11/2019 8:53 AM EDT Temperature 37.5 02/11/2019 8:53 AM EDT C (99.5 F) Respiratory Rate 18 02/11/2019 8:53 AM EDT Oxygen Saturation - - Inhaled Oxygen Concentration - - Weight 54.4 kg (120 lb) 02/11/2019 8:53 AM EDT Height 157.5 cm (5' 2") 02/11/2019 8:53 AM EDT Body Mass Index 21.95 02/11/2019 8:53 AM EDT documented in this encounter Progress Notes Miguel Lucero, DO - 02/11/2019 8:40 AM EDT PATIENT: Danay Lopez : 1990 DATE OF SERVICE: 02/11/2019 CHIEF COMPLAINT: Chief Complaint Patient presents with Emesis c/o vomiting with no appetite x2 months with weight loss after losing insurance and stopping medications. States believes related to withdrawal. Would like to discuss zofran. Also c/o fever and chills. Subjective HISTORY OF PRESENT ILLNESS: Danay Lopez is a 28-y.o. female. HPI She lost her insurance last 2 months Getting it back feb 21, 2019 Chronic gerd Without PPI Started it back a week ago after heartburn got too much Last 2 months nausea, vomiting after meals No pain or trouble with swallowing food No diarrhea No blood or black stools No abdominal pain Off RA medications too with no insurance Anxiety: wants xanax refilled until seen by pcp Denies diversion Past Medical History: Diagnosis Date Chronic sinusitis Chronic tonsillitis 10/17/2008 Orthostatic proteinuria evaluated at [facility] RA (rheumatoid arthritis) (HCC) Spondylosis of lumbar region without myelopathy or radiculopathy 2015 Family History Problem Relation Age of Onset Hypertension Mother Asthma Mother MS Mother Genetic Brother [place] disease Current Outpatient Medications Medication Sig adalimumab (HUMIRA PEN) 40 MG/0.8ML Subcutaneous Pen-injector Kit Inject 40 mg beneath the skin. albuterol HFA (VENTOLIN HFA) 108 (90 Base) MCG/ACT Inhalation Aero Soln Take 2 Puffs by inhalation EVERY FOUR HOURS NEEDED (short of breath). ALPRAZolam (XANAX) 0.5 MG Oral Tab Take 1 Tab by mouth DAILY NEEDED ( anxiety). Max Daily Amount: 0.5 mg. fluoxetine (PROZAC) 20 MG Oral Cap Take 1 Cap by mouth DAILY. foliC acid 1 MG Oral Tab MELOXICAM PO Take 7.5 mg by mouth TWO TIMES DAILY NEEDED. Methotrexate 2.5 MG Oral Tab Take 15 mg by mouth EVERY 7 DAYS. Omeprazole delayed rel cap 20 MG Oral CAPSULE DELAYED RELEASE Take 20 mg by mouth DAILY. ondansetron (ZOFRAN ODT) 4 MG Oral TABLET DISPERSIBLE Take 1 Tab by mouth EVERY SIX HOURS NEEDED (nausea). predniSONE (DELTASONE) 5 MG Oral Tab Take 5 mg by mouth DAILY. quetiapine (SEROQUEL) 25 MG Oral Tab Take 1 Tab by mouth EVERY BEDTIME. Quetiapine Fumarate (SEROQUEL) 50 MG Oral Tab take 1 tablet by mouth at bedtime No current facility-administered medications for this visit. Allergies Allergen Reactions Tramadol MACHINE SPRING FORMER Reaction and GI Reaction Vomiting & shaking Social History Socioeconomic History Marital status: Single Spouse name: Not on file Number of children: Not on file Years of education: Not on file Highest education level: Not on file Occupational History Not on file Social Needs Financial resource strain: Not on file Food insecurity: Worry: Not on file Inability: Not on file Transportation needs: Medical: Not on file Non-medical: Not on file Tobacco Use Smoking status: Never Smoker Smokeless tobacco: Never Used Substance and Sexual Activity Alcohol use: No Alcohol/week: 0.0 standard drinks Drug use: No Sexual activity: Yes Lifestyle Physical activity: Days per week: Not on file Minutes per session: Not on file Stress: Not on file Relationships Social connections: Talks on phone: Not on file Gets together: Not on file Attends sabianism service: Not on file Active member of club or organization: Not on file Attends meetings of clubs or organizations: Not on file Relationship status: Not on file Intimate partner violence: Fear of current or ex partner: Not on file Emotionally abused: Not on file Physically abused: Not on file Forced sexual activity: Not on file Other Topics Concern Not on file Social History Narrative Not on file REVIEW OF SYSTEMS: Review of Systems Constitutional: Negative for chills, diaphoresis and fever. Cardiovascular: Negative for chest pain. Neurological: Negative for dizziness. Objective PHYSICAL EXAM: VITALS: BP 120/72 (BP Location: Left arm, Patient Position: Sitting) | Pulse 100 | Temp 99.5 F (37.5 C) | Resp 18 | Ht 5' 2" (1.575 m) | Wt 120 lb (54.4 kg) | LMP 12/11/2018 (Approximate) | ? No | BMI 21.95 kg/m Body mass index is 21.95 kg/m. Physical Exam Constitutional: She appears well-developed and well-nourished. No distress. HENT: Head: Normocephalic and atraumatic. Mouth/Throat: No oropharyngeal exudate. Eyes: Conjunctivae are normal. Right eye exhibits no discharge. Left eye exhibits no discharge. No scleral icterus. Cardiovascular: Normal rate and regular rhythm. Pulmonary/Chest: Effort normal and breath sounds normal. Abdominal: Soft. Bowel sounds are normal. She exhibits no distension and no mass. There is no tenderness. There is no rebound and no guarding. Skin: She is not diaphoretic. Urine hcg negative ASSESSMENT / IMPRESSION: ICD-9-CM ICD-10-CM 1. Gastroesophageal reflux disease, esophagitis presence not specified 530.81 K21.9 2. Nausea and vomiting, intractability of vomiting not specified, unspecified vomiting type 787.01 R11.2 3. Anxiety 300.00 F41.9 ALPRAZolam (XANAX) 0.5 MG Oral Tab 4. Nausea 787.02 R11.0 ondansetron (ZOFRAN ODT) 4 MG Oral TABLET DISPERSIBLE 5. Weight loss 783.21 R63.4 Plan I think her nausea, vomiting are from uncontrolled GERD. She started omeprazole recently but taking qhs. Told her to take 40 mg of it rather than 20 mg and take it 30 minutes prior to first meal. Weight loss from 147 to 120 lbs is significant and likely from her inability to keep food down. Reassess by pcp in February for which we made her appt today In mean time zofran prn Xanax refilled after checking I stop. Author: Miguel Lucero DO 02/11/2019 09:14 documented in this encounter Plan of Treatment Date Type Specialty Care Team Description 02/23/2019 Office Visit [facility] Antonina Jung MD [address] [place] [address] Health Maintenance Due Date Last Done Comments INFLUENZA VACCINE (#1) 2019 01/13/2018, 02/19/2017, 02/13/2016, Additional history exists DEPRESSION SCREENING 09/28/2019 09/27/2018 PAP SMEAR 03/17/2021 03/17/2018, 01/24/2015, 03/31/2012, Additional history exists MENINGOCOCCAL VACCINE IMM Aged Out 12/08/2004 No longer eligible based on patient's age to complete this topic HPV IMMUNIZATION SERIES Completed 02/08/2007, 10/08/2006, 08/09/2006 PNEUMOCOCCAL 0-64 YRS Aged Out No longer eligible based on patient's age to complete this topic documented as of this encounter Goals Goal Patient Goal Associated Recent Patient-Stated? Author Type Problems Progress Depression Depression No faisal Jung (PHQ-9) Antonina, total score < 5 Note: This is an individualized treatment (depression) goal for Danay Lopez: Displayed above is your goal for a depression screening (PHQ-9) score that would indicate good control of your depression. Keep a regular sleep schedule Lifestyle No Antonina Jung MD Note: This is an individualized lifestyle goal for Danay Zaid Jessica: Please maintain a regular sleep schedule. This may help with some symptoms of depression. Take all prescribed medications as Self-management No Antonina Jung MD directed Note: This is an individualized self-management goal for Danay Lopez: Please take all prescribed medications as directed. 1. Do not skip doses. If you cannot afford your medications, talk with your doctor. 2. Use a pill reminder system such as a pill box if needed. Your pharmacist can help you with this. 3. Contact your Pharmacy 5 days before your medication runs out. If you cannot take your medications for any reasons, talk with your doctor. 4. Please bring all of your medication bottles and inhalers (or a list of all your medications/inhalers) with you to every visit. Potential barriers to meeting all of your care plan goals will continue to be addressed on an ongoing basis. documented as of this encounter Procedures Procedure Name Priority Date/Time Associated Diagnosis Comments BRUNO, QUALITATIVE, Routine 02/11/2019 9:16 Nausea and vomiting, Results for this URINE (AMB POCT) AM EDT intractability of procedure are in vomiting not specified, the results unspecified vomiting section. type documented in this encounter Results HCG, QUALITATIVE, URINE (AMB POCT) (02/11/2019 9:16 AM EDT) HCG QUAL URINE (POCT) Negative Negative [facility] Control Line Present Present [facility] PO[facility] Lot Number [id number] [facility] Expiration Date 05/2020 [facility] Specimen Performing Organization Address City/State/Zipcode Phone Number [facility] [address] [place] [address] documented in this encounter Visit Diagnoses Diagnosis Gastroesophageal reflux disease, esophagitis presence not specified - Primary Nausea and vomiting, intractability of vomiting not specified, unspecified vomiting type Anxiety Anxiety state, unspecified Nausea Nausea alone Weight loss Loss of weight documented in this encounter
[2019-02-25 12:54] LABS: Influenza A Molecular NEGATIVE (Negative); Influenza B Molecular NEGATIVE (Negative)
[2019-02-25 12:58] LABS: ALT 14 U/L (7-52); AST 16 U/L (13-39); Albumin 4.7 g/dL (3.2-5.2); Albumin/Globulin Ratio 1.2 (1-3); Alkaline Phosphatase 71 U/L (34-104); Anion Gap 10 mmol/L (2-11); BUN/Creatinine Ratio 15.8 (8-20); Blood Urea Nitrogen 9 mg/dL (6-24); C Reactive Protein 173.92 mg/L (<8.01); CO2 Carbon Dioxide 26 mmol/L (22-32); Calcium 9.7 mg/dL (8.6-10.3); Chloride 96 mmol/L (101-111); EGFR African American 152.8 (>60); EGFR Non-African American 126.3 (>60); Globulin 3.8 g/dL (2-4); Glucose 99 mg/dL (70-100); Potassium 3.9 mmol/L (3.5-5.0); Sodium 132 mmol/L (135-145); Total Protein 8.5 g/dL (6.4-8.9)
[2019-02-25] MEDS ORDERED: Amoxicillin/Clavulanate TAB* 875 MG PO ONE ×2 (13:02)
[2019-02-25 13:04] LABS: HCG Pregnancy < 0.60 mIU/mL
[2019-02-25 13:20] VITALS: BP 148/72
== END 2019-02-25 13:12 | disposition home or self-care (01) ==
LOC: ED 12:14
DX: J01.90 Acute sinusitis, unspecified (principal); F41.9 Anxiety disorder, unspecified; F32.9 Major depressive disorder, single episode, unspecified; F17.210 Nicotine dependence, cigarettes, uncomplicated; Z90.49 Acquired absence of other specified parts of digestive tract; Z88.5 Allergy status to narcotic agent; Z79.899 Other long term (current) drug therapy
CPT/HCPCS: 36415; 71046; 80053; 84702; 85025; 86140; 99283; A9270-GY

== ENCOUNTER 2020-05-06 20:28 | Inpatient (IN) ==
[2020-05-06] MEDS ORDERED: Diazepam (ANTICONVULSANT) 10 MG RECTAL.GEL ONE (20:33)
[2020-05-06] MEDS ORDERED: LORazepam 2 mg VIAL 1 ml IV PUSH ONE (20:36)
[2020-05-06] MEDS ORDERED: Lorazepam PYXIS KEY PRN (20:36)
[2020-05-06] MEDS ORDERED: Lorazepam PYXIS KEY ONE (20:36)
[2020-05-06] MEDS ORDERED: Diazepam (ANTICONVULSANT) 10 MG RECTAL.GEL PR ONE (20:36)
[2020-05-06] MEDS ORDERED: LORazepam 2 mg VIAL 1 ml ONE (20:37)
[2020-05-06] MEDS ORDERED: Diazepam INJ CARPUJECT 5 MG/ML ONE (20:39)
[2020-05-06] MEDS ORDERED: Rocuronium 50 mg VIAL 10 mg/ml 5 ml VIAL (50 mg) ONE (20:41)
[2020-05-06] MEDS ORDERED: Succinylcholine 200 mg VIAL 20 mg/ml 10 ml VIAL (200 mg) ONE ×2 (20:41→20:48)
[2020-05-06] MEDS ORDERED: Etomidate 40 mg/20 ml (2 MG/ML) 20 ml VIAL (40 mg) ONE (20:48)
[2020-05-06 21:12] LABS: Hematocrit 36 % (35-47); Hemoglobin 11.1 g/dL (12.0-16.0); Mean Corpuscular HGB Conc 31 g/dL (31-36); Mean Corpuscular Hemoglobin 26 pg (27-31); Mean Corpuscular Volume 86 fL (80-97); Mean Platelet Volume 7.6 fL (7.4-10.4); Platelet Count 503 10^3/uL (150-450); Red Blood Count 4.21 10^6 /uL (3.70-4.87); Red Cell Distribution Width 17 % (10-15); White Blood Count 20.1 10^3/uL (3.5-10.8)
[2020-05-06] MEDS ORDERED: diphenhydrAMINE 50 MG/ML INJ SYRINGE *CHOA ONE (21:28)
[2020-05-06] MEDS ORDERED: Haloperidol 5 mg/ml SDV IV/IM 5 MG/ML AMP ONE (21:28)
[2020-05-06 21:29] LABS: ALT 22 U/L (7-52); AST 36 U/L (13-39); Acetaminophen < 15 mcg/mL; Albumin 4.2 g/dL (3.2-5.2); Albumin/Globulin Ratio 1.1 (1-3); Alcohol, S < 10 mg/dL (<10); Alkaline Phosphatase 84 U/L (34-104); Anion Gap 22 mmol/L (2-11); BUN/Creatinine Ratio 10.1 (8-20); Blood Urea Nitrogen 12 mg/dL (6-24); CO2 Carbon Dioxide 15 mmol/L (22-32); Chloride 101 mmol/L (101-111); EGFR African American 64.9 (>60); EGFR Non-African American 53.6 (>60); Globulin 3.7 g/dL (2-4); Glucose 79 mg/dL (70-100); Potassium 4.3 mmol/L (3.5-5.0); Salicylate < 2.50 mg/dL (<30); Sodium 138 mmol/L (135-145); Total Protein 7.9 g/dL (6.4-8.9)
[2020-05-06 21:35] LABS: HCG Pregnancy 0.65 mIU/mL
[2020-05-06 21:40] LABS: Urine Appearance Cloudy; Urine Bilirubin Negative (Negative); Urine Blood 3+ (Negative); Urine Color Yellow; Urine Glucose Negative (Negative); Urine Ketones Negative (Negative); Urine Nitrite Negative (Negative); Urine Protein 2+(100 mg/dL) (Negative); Urine Specific Gravity 1.023 (1.010-1.030); Urine Urobilinogen Negative (Negative)
[2020-05-06 21:44] LABS: TSH Ultra Thyroid Stim Horm 11.96 mcIU/mL (0.34-5.60)
[2020-05-06 21:53] LABS: Urine Bacteria Absent (Absent); Urine Red Blood Cell 3+(>10/hpf) (Absent); Urine Squamous Epithelial Cell Present (Absent); Urine White Blood Cell Trace(0-5/hpf) (Absent)
[2020-05-06 21:55] LABS: ABS Eosinophils 0.6 10^3/ul (0-0.6); ABS Monocytes 1.8 10^3/ul (0-0.8); ABS Neutrophils 6.7 10^3/ul (1.5-7.7); Eosinophil % 2.9 %; Lymphocyte % 54.7 %; Nucleated Red Blood Cells % 0.1
[2020-05-06 22:00] LABS: Urine Benzodiazepine Screen Presumptive Positive (None Detect); Urine Cannabinoids Screen None Detected (None Detect); Urine Opiates Screen Presumptive Positive (None Detect)
[2020-05-06] MEDS ORDERED: NS 0.9% 1000 ml BAG 1,000 ML IV.FLUID IV ONE (22:18)
[2020-05-06] MEDS ORDERED: Piperacillin/Tazobac ADVAN 3.375 GM in NS 0.9% 100 ml BAG 100 ML IVPB ONE (22:18)
[2020-05-06] MEDS ORDERED: Vancomycin 1,000 MG in NS 0.9% 250 ml 250 ML IVPB ONE (23:00)
[2020-05-07] MEDS ORDERED: levETIRAcetam 1000MG IVPREMIX 1,000 MG/100 ML BAG IVPB ONE (02:16)
[2020-05-07] MEDS ORDERED: Ondansetron 4 mg VIAL 2 MG/ML 2 ml VIAL IV PRN (02:21)
[2020-05-07] MEDS ORDERED: NS 0.9% 1000 ml BAG 1,000 ML IV SCH (02:30)
[2020-05-07 02:50] LABS: C Reactive Protein 4.11 mg/L (<8.01)
[2020-05-07] MEDS ORDERED: Acyclovir IV 500 MG/10 ML 100 ML VIAL (500 MG) IVPB SCH (03:00)
[2020-05-07] MEDS ORDERED: Vancomycin per Pharmacy 1 EA NOTE FOLLOW UP SCH (03:00)
[2020-05-07 04:11] LABS: Free T4 0.52 ng/dL (0.61-1.12)
[2020-05-07 04:41] LABS: ABS Eosinophils 0.1 10^3/ul (0-0.6); ABS Lymphocytes 3.1 10^3/ul (1.0-4.8); ABS Monocytes 0.9 10^3/ul (0-0.8); ABS Neutrophils 7.7 10^3/ul (1.5-7.7); Eosinophil % 1.2 %; Hematocrit 29 % (35-47); Hemoglobin 9.7 g/dL (12.0-16.0); Lymphocyte % 25.8 %; Mean Corpuscular HGB Conc 33 g/dL (31-36); Mean Corpuscular Hemoglobin 26 pg (27-31); Mean Corpuscular Volume 80 fL (80-97); Mean Platelet Volume 7.5 fL (7.4-10.4); Platelet Count 331 10^3/uL (150-450); Red Blood Count 3.65 10^6 /uL (3.70-4.87); Red Cell Distribution Width 17 % (10-15); White Blood Count 11.9 10^3/uL (3.5-10.8)
[2020-05-07] MEDS: cefTRIAXone 1 gm/50 mL NS BAG 1 GM/50 ML BAG IVPB SCH ×2 (04:58→04:59)
[2020-05-07] MEDS ORDERED: Acyclovir IV 600 MG in NS 0.9% 100 ml BAG 100 ML IVPB SCH (05:00)
[2020-05-07] MEDS ORDERED: cefTRIAXone 1 gm/50 mL NS BAG 1 GM/50 ML BAG IVPB SCH (05:00)
[2020-05-07 05:03] LABS: BUN/Creatinine Ratio 11.4 (8-20); Magnesium 2.7 mg/dL (1.9-2.7); Potassium 4.1 mmol/L (3.5-5.0)
[2020-05-07] MEDS ORDERED: Vancomycin 1000 MG in NS 0.9% 250 ML IVPB SCH (11:00)
[2020-05-07] MEDS: Methadone ORALSYR CONC LIQ 10 MG/ML PO SCH (16:03)
[2020-05-07] MEDS ORDERED: Enoxaparin 40 MG/0.4 ML SYR SUBCUT SCH (18:00)
[2020-05-08 07:19] LABS: ABS Eosinophils 0.3 10^3/ul (0-0.6); ABS Lymphocytes 3.8 10^3/ul (1.0-4.8); ABS Monocytes 0.8 10^3/ul (0-0.8); ABS Neutrophils 4.3 10^3/ul (1.5-7.7); Eosinophil % 2.8 %; Hematocrit 28 % (35-47); Hemoglobin 9.4 g/dL (12.0-16.0); Lymphocyte % 41.6 %; Mean Corpuscular HGB Conc 34 g/dL (31-36); Mean Corpuscular Hemoglobin 27 pg (27-31); Mean Corpuscular Volume 80 fL (80-97); Mean Platelet Volume 7.5 fL (7.4-10.4); Platelet Count 343 10^3/uL (150-450); Red Blood Count 3.49 10^6 /uL (3.70-4.87); Red Cell Distribution Width 17 % (10-15); White Blood Count 9.2 10^3/uL (3.5-10.8)
[2020-05-08 07:29] LABS: BUN/Creatinine Ratio 11.9 (8-20); Calcium 8.7 mg/dL (8.6-10.3); EGFR African American 125.9 (>60); EGFR Non-African American 104.1 (>60); Potassium 3.5 mmol/L (3.5-5.0)
[2020-05-08] MEDS: Methadone ORALSYR CONC LIQ 10 MG/ML PO SCH (08:34)
[2020-05-08] MEDS ORDERED: Vancomycin Trough Check NOTE FOLLOW UP ONE (10:30)
[2020-05-08 15:43] VITALS: BP 119/69
== END 2020-05-08 19:05 | disposition home or self-care (01) | DRG 100 ==
LOC: ED 20:28 → ICU 05-07 02:21 → MED 05-07 17:04
PROVIDERS: ADMIT Pediatrics; ATTEND Internal Medicine

== ENCOUNTER 2023-07-26 14:15 | Inpatient (IN) ==
[2023-07-26] MEDS ORDERED: Lorazepam PYXIS KEY PRN ×5 (15:15→18:19)
[2023-07-26 15:51] LABS: Hemoglobin 10.7 g/dL (11.5-14.3); Mean Corpuscular Hemoglobin 25.3 pg (27-33); Mean Corpuscular Hgb Conc 32.4 g/dL (31-36); Mean Corpuscular Volume 78.2 fL (80-97); Platelet Count 390 10^3/uL (150-450); Red Blood Count 4.22 10^6/uL (3.63-4.92); Red Cell Distribution Width 16.6 % (12-17); Urine Appearance Turbid; Urine Bilirubin Negative (Negative); Urine Blood 2+ (Negative); Urine Color Yellow; Urine Glucose Negative (Negative); Urine Ketones Trace (Negative); Urine Nitrite Negative (Negative); Urine Protein 1+ (>=30 mg/dL) (Negative); Urine Urobilinogen 1+ (Negative); Urine pH 5.5 (5.0-8.0); White Blood Count 37.7 10^3/uL (3.8-11.8)
[2023-07-26 15:54] LABS: Urine Bacteria 1+ /HPF (Absent); Urine Red Blood Cell 3+(>10/hpf) /HPF (0-Trace); Urine Squamous Epithelial Cell Present /HPF (Absent); Urine White Blood Cell 3+(>20/hpf) /HPF (0-Trace)
[2023-07-26] MEDS: LORazepam 2 mg VIAL 1 ml IV PUSH ONE ×4 (15:56→18:33)
[2023-07-26] MEDS: Cefepime 1 GM in Dextrose 1 GM/50 ML BAG IV ONE (15:56)
[2023-07-26 16:14] LABS: Albumin 4.1 g/dL (3.2-5.2); Albumin/Globulin Ratio 1.1 (1-3); C Reactive Protein 354.9 mg/L (<8.01); Calcium 8.9 mg/dL (8.6-10.3); Creatinine, Serum 1.39 mg/dL (0.51-0.95); Globulin 3.7 g/dL (2-4); Potassium 3.3 mmol/L (3.5-5.0); Total Bilirubin 0.3 mg/dL (0.2-1.0); Total Protein 7.8 g/dL (6.4-8.9); eGFR CKD-EPI 51.4 (>60)
[2023-07-26 16:32] LABS: Urine Benzodiazepine Screen None Detected (None Detect); Urine Cannabinoids Screen None Detected (None Detect); Urine Opiates Screen None Detected (None Detect)
[2023-07-26] MEDS ORDERED: Polyethylene Glycol 3350 17 GM PACKET PO PRN (16:32)
[2023-07-26] MEDS ORDERED: Senna TAB 8.6 mg TAB PO PRN (16:32)
[2023-07-26 16:34] LABS: TSH Ultra Thyroid Stim Horm 0.37 mcIU/mL (0.34-5.60)
[2023-07-26 16:39] LABS: Free T4 0.7 ng/dL (0.61-1.12)
[2023-07-26 16:39] LABS: ABS Lymphocytes 1.5 10^3/uL (1.0-4.8); ABS Monocytes 1.9 10^3/uL (0.0-0.9); ABS Neutrophils 34.3 10^3/uL (1.5-7.6); Lymphocyte % 3.9 %; RBC Morphology Normal (Normal)
[2023-07-26] MEDS: Lactated Ringers 1000 ml BAG 1,000 ML IV ONE ×2 (16:41)
[2023-07-26] MEDS ORDERED: LORazepam 2 mg VIAL 1 ml ONE (17:36)
[2023-07-26] MEDS ORDERED: Morphine 2 MG/ML SYRINGE IV PRN (17:55)
[2023-07-26] MEDS ORDERED: Ondansetron ODT 4 mg TAB 4 MG TAB PO PRN (18:03)
[2023-07-26] MEDS: Vancomycin 1,000 MG in NS 0.9% 250 ml 250 ML IVPB ONE (18:35)
[2023-07-26] MEDS: Magic MouthWash1-BEN/MAAL/LIDO 180 ML BTL SWISH SWAL SCH (18:50)
[2023-07-26] MEDS ORDERED: Vancomycin per Pharmacy 1 EA NOTE FOLLOW UP SCH (19:00)
[2023-07-26] MEDS: Iodixanol (CONTRAST) 320 MG/ML 100 ML SDV IV ONE (19:26)
[2023-07-26] MEDS: Potassium EFFERVES 25 meq TAB PO ONE (19:32)
[2023-07-26] MEDS: Lactated Ringers 1000 ml BAG 1,000 ML IV SCH (20:14)
[2023-07-26] MEDS: Morphine 2 MG/ML SYRINGE IV PRN (21:01)
[2023-07-27] MEDS: Cefepime 2 GM in Dextrose 2 GM/50 ML BAG IV SCH (05:36)
[2023-07-27] MEDS: Vancomycin 750 MG in NS 0.9% 250 ML IVPB SCH (06:22)
[2023-07-27 08:51] LABS: Hematocrit 31.3 % (35-45); Hemoglobin 10.3 g/dL (11.5-14.3); Mean Corpuscular Hemoglobin 25.3 pg (27-33); Mean Corpuscular Hgb Conc 32.8 g/dL (31-36); Mean Corpuscular Volume 77.2 fL (80-97); Mean Platelet Volume 8.1 fL (7.5-11.2); Platelet Count 343 10^3/uL (150-450); Red Blood Count 4.05 10^6/uL (3.63-4.92); Red Cell Distribution Width 16.4 % (12-17); White Blood Count 33.1 10^3/uL (3.8-11.8)
[2023-07-27 09:08] LABS: % Iron Saturation 7 % (15-55); .Transferrin 205 mg/dL (203-362); ALT 161 U/L (7-52); AST 204 U/L (13-39); Albumin 3.3 g/dL (3.2-5.2); Albumin/Globulin Ratio 1.1 (1-3); Alkaline Phosphatase 227 U/L (35-149); Anion Gap 11 mmol/L (2-16); Blood Urea Nitrogen 26 mg/dL (6-24); CO2 Carbon Dioxide 25 mmol/L (22-32); Calcium 8.3 mg/dL (8.6-10.3); Chloride 102 mmol/L (101-111); Creatinine, Serum 0.81 mg/dL (0.51-0.95); Globulin 2.9 g/dL (2-4); Glucose 64 mg/dL (70-100); Iron < 20 ug/dL (50-212); Magnesium 2.2 mg/dL (1.9-2.7); Potassium 3.4 mmol/L (3.5-5.0); Sodium 138 mmol/L (135-145); Total Bilirubin 0.4 mg/dL (0.2-1.0); Total Iron Binding Capacity 287 mcg/dL (250-450); Total Protein 6.2 g/dL (6.4-8.9); Transferrin 205 mg/dL (203-362); Unsaturated Iron Binding 267 ug/dL; eGFR CKD-EPI 98.2 (>60)
[2023-07-27 09:30] LABS: ABS Lymphocytes 1.1 10^3/uL (1.0-4.8); ABS Monocytes 1.3 10^3/uL (0.0-0.9); ABS Neutrophils 30.7 10^3/uL (1.5-7.6); Ferritin 235.5 ng/mL (11-307); Lymphocyte % 3.4 %
[2023-07-27 09:33] LABS: Folate 6.65 ng/mL (5.90-24.80)
[2023-07-27 09:34] LABS: Vitamin B12 > 1450 pg/mL (180-914)
[2023-07-27] MEDS: Methadone ORALSYR CONC LIQ 10 MG/ML PO SCH (10:39)
[2023-07-27] MEDS: Lactated Ringers 1000 ml BAG 1,000 ML IV SCH (17:35)
[2023-07-27] MEDS: KCL 20 MEQ/100 ML IVPREMIX 20 MEQ/100 ML BAG IV SCH (17:42)
[2023-07-27] MEDS: Potassium Chlor 20 meq TAB.ER PO SCH (21:18)
[2023-07-27 22:48] LABS: Calcium 7.8 mg/dL (8.6-10.3); Creatinine, Serum 0.69 mg/dL (0.51-0.95); Potassium 3.5 mmol/L (3.5-5.0); eGFR CKD-EPI 117.4 (>60)
[2023-07-28] MEDS: D5LR 1000 ml BAG 1,000 ML IV SCH ×3 (00:14→11:23)
[2023-07-28 05:48] LABS: ABS Eosinophils 0.1 10^3/uL (0.0-0.5); ABS Lymphocytes 2.7 10^3/uL (1.0-4.8); ABS Monocytes 1.4 10^3/uL (0.0-0.9); ABS Neutrophils 19.7 10^3/uL (1.5-7.6); ABS Nucleated RBC 0.02 10^3/ul; Eosinophil % 0.5 %; Hematocrit 26.7 % (35-45); Hemoglobin 8.9 g/dL (11.5-14.3); Lymphocyte % 11.3 %; Mean Corpuscular Hgb Conc 33.3 g/dL (31-36); Mean Corpuscular Volume 77.9 fL (80-97); Nucleated Red Blood Cells % 0.1 %/100WBC (0.0-0.8); Platelet Count 300 10^3/uL (150-450); Red Blood Count 3.43 10^6/uL (3.63-4.92)
[2023-07-28 06:12] LABS: Calcium 7.8 mg/dL (8.6-10.3); Creatinine, Serum 0.64 mg/dL (0.51-0.95); Potassium 3.2 mmol/L (3.5-5.0); eGFR CKD-EPI 119.6 (>60)
[2023-07-28] MEDS: Vancomycin Trough Check NOTE FOLLOW UP ONE (06:25)
[2023-07-28] MEDS: Potassium Chlor 20 meq TAB.ER PO ONE (10:11)
[2023-07-28] MEDS: Vancomycin 1000 MG in NS 0.9% 250 ML IVPB SCH (13:20)
[2023-07-28 13:51] LABS: Trichomonas vag NAA Female Negative (Negative)
[2023-07-28 17:30] LABS: Chlamydia trachomatis NAA Negative (Negative); Neisseria gonorrhoeae (GC) NAA Negative (Negative)
[2023-07-29 07:23] LABS: ABS Eosinophils 0.2 10^3/uL (0.0-0.5); ABS Lymphocytes 3.6 10^3/uL (1.0-4.8); ABS Monocytes 1.4 10^3/uL (0.0-0.9); ABS Neutrophils 14.3 10^3/uL (1.5-7.6); ABS Nucleated RBC 0.01 10^3/ul; Eosinophil % 1.2 %; Hematocrit 28.3 % (35-45); Hemoglobin 9.1 g/dL (11.5-14.3); Lymphocyte % 18.6 %; Mean Corpuscular Hemoglobin 25.3 pg (27-33); Mean Corpuscular Hgb Conc 32.2 g/dL (31-36); Mean Corpuscular Volume 78.7 fL (80-97); Mean Platelet Volume 7.9 fL (7.5-11.2); Platelet Count 285 10^3/uL (150-450); Red Blood Count 3.59 10^6/uL (3.63-4.92); Red Cell Distribution Width 16.7 % (12-17); White Blood Count 19.6 10^3/uL (3.8-11.8)
[2023-07-29 08:04] LABS: Calcium 7.6 mg/dL (8.6-10.3); Creatinine, Serum 0.65 mg/dL (0.51-0.95); Magnesium 1.6 mg/dL (1.9-2.7); Potassium 3.6 mmol/L (3.5-5.0); eGFR CKD-EPI 119.1 (>60)
[2023-07-29] MEDS: KCL 20 MEQ/100 ML IVPREMIX 20 MEQ/100 ML BAG IV SCH (08:33)
[2023-07-29] MEDS: Magnesium Sulfate 2 gm BAG 2 GM/50 ML BAG IVPB ONE (10:38)
[2023-07-29] MEDS: Vancomycin Trough Check NOTE FOLLOW UP ONE (13:04)
[2023-07-29] MEDS: D5LR 1000 ml BAG 1,000 ML IV SCH (13:15)
[2023-07-29] MEDS: Iohexol 300 (CONTRAST) 10 ML SDV IV ONE (15:23)
[2023-07-29] MEDS: ceFAZolin 1 GM in Dextrose 1 GM/50 ML BAG IVPB SCH (18:03)
[2023-07-29] MEDS ORDERED: Zosyn per Pharmacy NOTE FOLLOW UP SCH (21:00)
[2023-07-29] MEDS: Piperacillin/Tazobac 3.375 BAG 3.375 GM/100 ML BAG IV ONE (21:02)
[2023-07-29] MEDS: DOXYcycline 100 MG in NS 0.9% 250 ml 250 ML IVPB SCH (22:16)
[2023-07-30] MEDS: ZOSYN 3.375 GM Q8H per EXTENDED INFUSION IV SCH (01:14)
[2023-07-30 05:21] LABS: Hematocrit 26.2 % (35-45); Hemoglobin 8.8 g/dL (11.5-14.3); Mean Corpuscular Hemoglobin 25.9 pg (27-33); Mean Corpuscular Hgb Conc 33.5 g/dL (31-36); Mean Corpuscular Volume 77.5 fL (80-97); Mean Platelet Volume 7.7 fL (7.5-11.2); Platelet Count 311 10^3/uL (150-450); Red Blood Count 3.38 10^6/uL (3.63-4.92); Red Cell Distribution Width 16.5 % (12-17); White Blood Count 20.7 10^3/uL (3.8-11.8)
[2023-07-30 05:41] LABS: Calcium 7.5 mg/dL (8.6-10.3); Creatinine, Serum 0.56 mg/dL (0.51-0.95); eGFR CKD-EPI 123.5 (>60)
[2023-07-30 07:49] LABS: Magnesium 1.5 mg/dL (1.9-2.7)
[2023-07-30 09:17] LABS: ABS Eosinophils 0.3 10^3/uL (0.0-0.5); ABS Lymphocytes 3.4 10^3/uL (1.0-4.8); ABS Monocytes 1.8 10^3/uL (0.0-0.9); ABS Neutrophils 15.2 10^3/uL (1.5-7.6); ABS Nucleated RBC 0.01 10^3/ul; Eosinophil % 1.5 %; Lymphocyte % 16.6 %
[2023-07-30] MEDS: Magnesium Sulf 4 GM/100 ML IV 4,000 MG/100 ML BAG IVPB ONE (12:04)
[2023-07-30] MEDS ORDERED: D10W 1000 ml BAG 1,000 ML IV SCH (17:00)
[2023-07-30] MEDS: D10W 1000 ml BAG 1,000 ML IV SCH (18:24)
[2023-07-31 07:28] LABS: Hematocrit 25.9 % (35-45); Hemoglobin 8.4 g/dL (11.5-14.3); Mean Corpuscular Hemoglobin 25.6 pg (27-33); Mean Corpuscular Hgb Conc 32.6 g/dL (31-36); Mean Corpuscular Volume 78.5 fL (80-97); Mean Platelet Volume 7.8 fL (7.5-11.2); Platelet Count 328 10^3/uL (150-450); Red Cell Distribution Width 16.7 % (12-17); White Blood Count 16.4 10^3/uL (3.8-11.8)
[2023-07-31 07:48] LABS: Albumin 2.5 g/dL (3.2-5.2); Albumin/Globulin Ratio 0.8 (1-3); Calcium 7.5 mg/dL (8.6-10.3); Creatinine, Serum 0.44 mg/dL (0.51-0.95); Globulin 3.2 g/dL (2-4); Magnesium 1.7 mg/dL (1.9-2.7); Potassium 3.7 mmol/L (3.5-5.0); Total Bilirubin 0.3 mg/dL (0.2-1.0); Total Protein 5.7 g/dL (6.4-8.9); eGFR CKD-EPI 130.9 (>60)
[2023-07-31 08:22] LABS: ABS Eosinophils 0.3 10^3/uL (0.0-0.5); ABS Lymphocytes 3.9 10^3/uL (1.0-4.8); ABS Monocytes 1.3 10^3/uL (0.0-0.9); ABS Neutrophils 10.8 10^3/uL (1.5-7.6); ABS Nucleated RBC 0.01 10^3/ul; Eosinophil % 1.6 %
[2023-07-31] MEDS ORDERED: Vancomycin Trough Check NOTE FOLLOW UP ONE (12:30)
[2023-07-31] MEDS: Polyethylene Glycol 3350 17 GM PACKET PO SCH (13:13)
[2023-07-31] MEDS: Morphine 2 MG/ML SYRINGE IV PRN (19:43)
[2023-07-31] MEDS: LORazepam 2 mg VIAL 1 ml IV PUSH PRN (22:07)
[2023-08-01 05:51] LABS: Hematocrit 25.1 % (35-45); Hemoglobin 8.2 g/dL (11.5-14.3); Mean Corpuscular Hemoglobin 25.4 pg (27-33); Mean Corpuscular Hgb Conc 32.5 g/dL (31-36); Mean Corpuscular Volume 78.1 fL (80-97); Mean Platelet Volume 7.3 fL (7.5-11.2); Platelet Count 369 10^3/uL (150-450); Red Blood Count 3.22 10^6/uL (3.63-4.92); Red Cell Distribution Width 16.6 % (12-17)
[2023-08-01 06:16] LABS: ABS Basophils 0.4 10^3/uL (0.0-0.1); ABS Eosinophils 0.3 10^3/uL (0.0-0.5); ABS Monocytes 1.1 10^3/uL (0.0-0.9); ABS Neutrophils 9.3 10^3/uL (1.5-7.6); ABS Nucleated RBC 0.01 10^3/ul; Lymphocyte % 21.5 %; Microcytosis 1+
[2023-08-01] MEDS: Potassium Chlor 20 meq TAB.ER PO ONE (09:04)
[2023-08-01] MEDS: Magnesium Sulfate 2 gm BAG 2 GM/50 ML BAG IVPB ONE (14:49)
[2023-08-01] MEDS: Magnesium Sulfate IV 1GM/100ML 1 GM/100 ML BAG IV ONE (16:00)
[2023-08-02 06:29] LABS: Hematocrit 27.1 % (35-45); Hemoglobin 8.9 g/dL (11.5-14.3); Mean Corpuscular Hemoglobin 25.5 pg (27-33); Mean Corpuscular Hgb Conc 32.9 g/dL (31-36); Mean Corpuscular Volume 77.7 fL (80-97); Mean Platelet Volume 7.1 fL (7.5-11.2); Platelet Count 513 10^3/uL (150-450); Red Blood Count 3.49 10^6/uL (3.63-4.92); Red Cell Distribution Width 16.6 % (12-17); White Blood Count 17.1 10^3/uL (3.8-11.8)
[2023-08-02 06:48] LABS: Albumin 2.8 g/dL (3.2-5.2); Albumin/Globulin Ratio 0.7 (1-3); Calcium 8.2 mg/dL (8.6-10.3); Creatinine, Serum 0.58 mg/dL (0.51-0.95); Potassium 4.6 mmol/L (3.5-5.0); Total Bilirubin 0.3 mg/dL (0.2-1.0); Total Protein 6.8 g/dL (6.4-8.9); eGFR CKD-EPI 122.5 (>60)
[2023-08-02 08:04] LABS: ABS Eosinophils 0.3 10^3/uL (0.0-0.5); ABS Lymphocytes 3.3 10^3/uL (1.0-4.8); ABS Monocytes 1.5 10^3/uL (0.0-0.9); ABS Neutrophils 11.9 10^3/uL (1.5-7.6); ABS Nucleated RBC 0.01 10^3/ul; Anisocytosis 1+; Lymphocyte % 19.2 %
[2023-08-02] MEDS ORDERED: Zosyn per Pharmacy NOTE FOLLOW UP SCH (10:00)
[2023-08-02] MEDS ORDERED: ZOSYN 3.375 GM x ONE DOSE over 30 miuntes IV (10:00)
[2023-08-02] MEDS ORDERED: Vancomycin per Pharmacy 1 EA NOTE FOLLOW UP SCH (10:00)
[2023-08-02 10:54] LABS: C Reactive Protein 115.77 mg/L (<8.01)
[2023-08-02] MEDS: Morphine 2 MG/ML SYRINGE IV PRN (11:22)
[2023-08-02 13:30] LABS: Hepatitis B Surface Antigen Nonreactive (Nonreactive)
[2023-08-02 13:35] LABS: Hepatitis A Ab IgM Negative (Negative)
[2023-08-02 13:36] LABS: Hepatitis B Core IgM Nonreactive (Nonreactive)
[2023-08-02 13:48] LABS: Hepatitis C Antibody Negative (Negative)
[2023-08-02] MEDS: Vancomycin 1,000 MG in NS 0.9% 250 ml 250 ML IVPB ONE (13:55)
[2023-08-02] MEDS: ZOSYN 3.375 GM Q8H per EXTENDED INFUSION IV SCH (15:35)
[2023-08-02 15:56] LABS: HIV 4th Generation Nonreactive (Nonreactive)
[2023-08-02] MEDS ORDERED: Vancomycin 1000 MG in NS 0.9% 250 ML IVPB SCH (17:30)
[2023-08-02] MEDS: Vancomycin 1000 MG in NS 0.9% 250 ML IVPB SCH (20:07)
[2023-08-02] MEDS: Gadoteridol (CONTRAST) 279.3 MG/ML 10 ML IV ONE (21:27)
[2023-08-03] MEDS: ZOSYN 3.375 GM Q8H per EXTENDED INFUSION IV SCH (00:14)
[2023-08-03 05:25] LABS: Hemoglobin 8.9 g/dL (11.5-14.3); Mean Corpuscular Hemoglobin 25.8 pg (27-33); Mean Corpuscular Hgb Conc 33.1 g/dL (31-36); Mean Corpuscular Volume 77.9 fL (80-97); Mean Platelet Volume 7.2 fL (7.5-11.2); Platelet Count 530 10^3/uL (150-450); Red Blood Count 3.46 10^6/uL (3.63-4.92); Red Cell Distribution Width 16.4 % (12-17); White Blood Count 14.1 10^3/uL (3.8-11.8)
[2023-08-03 05:43] LABS: C Reactive Protein 80.84 mg/L (<8.01); Calcium 8.4 mg/dL (8.6-10.3); Creatinine, Serum 0.62 mg/dL (0.51-0.95); Magnesium 1.6 mg/dL (1.9-2.7); Potassium 4.6 mmol/L (3.5-5.0); eGFR CKD-EPI 120.5 (>60)
[2023-08-03 06:57] LABS: ABS Basophils 0.1 10^3/uL (0.0-0.1); ABS Eosinophils 0.6 10^3/uL (0.0-0.5); ABS Lymphocytes 4.6 10^3/uL (1.0-4.8); ABS Neutrophils 7.9 10^3/uL (1.5-7.6); ABS Nucleated RBC 0.05 10^3/ul; Eosinophil % 4.1 %; Lymphocyte % 32.3 %; Nucleated Red Blood Cells % 0.3 %/100WBC (0.0-0.8)
[2023-08-03 06:58] LABS: RBC Morphology Normal (Normal)
[2023-08-03 06:59] LABS: ABS Eosinophils 0.6 10^3/ul (0.0-0.5); ABS Lymphocytes 4.5 10^3/ul (1.0-4.8); ABS Monocytes 0.4 10^3/ul (0.0-0.9); ABS Neutrophils 8.6 10^3/ul (1.5-7.6)
[2023-08-03] MEDS: Magnesium Sulf 4 GM/100 ML IV 4,000 MG/100 ML BAG IVPB ONE (08:40)
[2023-08-03] MEDS: Vancomycin Trough Check NOTE FOLLOW UP ONE (12:39)
[2023-08-04 06:46] LABS: Hematocrit 26.3 % (35-45); Hemoglobin 8.7 g/dL (11.5-14.3); Mean Corpuscular Hemoglobin 25.5 pg (27-33); Mean Corpuscular Volume 77.4 fL (80-97); Mean Platelet Volume 6.8 fL (7.5-11.2); Platelet Count 551 10^3/uL (150-450); Red Blood Count 3.39 10^6/uL (3.63-4.92); Red Cell Distribution Width 16.5 % (12-17); White Blood Count 14.2 10^3/uL (3.8-11.8)
[2023-08-04 07:25] LABS: C Reactive Protein 50.68 mg/L (<8.01); Calcium 8.4 mg/dL (8.6-10.3); Creatinine, Serum 0.66 mg/dL (0.51-0.95); Magnesium 1.9 mg/dL (1.9-2.7); Potassium 4.9 mmol/L (3.5-5.0); eGFR CKD-EPI 118.7 (>60)
[2023-08-04] MEDS: Nystatin SUSPENSION 100,000 UNITS/ML UDC SWISH SPIT SCH (08:28)
[2023-08-04 08:34] LABS: ABS Basophils 0.1 10^3/uL (0.0-0.1); ABS Eosinophils 0.4 10^3/uL (0.0-0.5); ABS Lymphocytes 4.2 10^3/uL (1.0-4.8); ABS Neutrophils 8.5 10^3/uL (1.5-7.6); ABS Nucleated RBC 0.01 10^3/ul; Anisocytosis 1+; Eosinophil % 2.8 %; Lymphocyte % 29.6 %; Microcytosis 1+; Nucleated Red Blood Cells % 0.1 %/100WBC (0.0-0.8)
[2023-08-04] MEDS: Enoxaparin 40 MG/0.4 ML SYR SUBCUT SCH (13:51)
[2023-08-05 06:26] LABS: Hematocrit 25.4 % (35-45); Hemoglobin 8.5 g/dL (11.5-14.3); Mean Corpuscular Hemoglobin 25.9 pg (27-33); Mean Corpuscular Hgb Conc 33.6 g/dL (31-36); Mean Corpuscular Volume 77.1 fL (80-97); Mean Platelet Volume 6.6 fL (7.5-11.2); Platelet Count 563 10^3/uL (150-450); Red Cell Distribution Width 16.3 % (12-17); White Blood Count 11.4 10^3/uL (3.8-11.8)
[2023-08-05 07:07] LABS: C Reactive Protein 33.13 mg/L (<8.01); Calcium 8.2 mg/dL (8.6-10.3); Creatinine, Serum 0.77 mg/dL (0.51-0.95); Magnesium 1.7 mg/dL (1.9-2.7); Potassium 4.7 mmol/L (3.5-5.0); eGFR CKD-EPI 104.4 (>60)
[2023-08-05] MEDS: Magnesium Sulfate 2 gm BAG 2 GM/50 ML BAG IVPB ONE (07:52)
[2023-08-05 08:26] LABS: ABS Basophils 0.1 10^3/uL (0.0-0.1); ABS Eosinophils 0.3 10^3/uL (0.0-0.5); ABS Lymphocytes 5.2 10^3/uL (1.0-4.8); ABS Monocytes 0.9 10^3/uL (0.0-0.9); ABS Nucleated RBC 0.02 10^3/ul; Eosinophil % 2.3 %; Nucleated Red Blood Cells % 0.2 %/100WBC (0.0-0.8)
[2023-08-06 06:09] LABS: ABS Basophils 0.1 10^3/uL (0.0-0.1); ABS Eosinophils 0.2 10^3/uL (0.0-0.5); ABS Lymphocytes 4.8 10^3/uL (1.0-4.8); ABS Monocytes 0.9 10^3/uL (0.0-0.9); ABS Neutrophils 8.6 10^3/uL (1.5-7.6); ABS Nucleated RBC 0.01 10^3/ul; Eosinophil % 1.7 %; Hematocrit 25.2 % (35-45); Hemoglobin 8.3 g/dL (11.5-14.3); Lymphocyte % 32.7 %; Mean Corpuscular Hemoglobin 25.5 pg (27-33); Mean Corpuscular Hgb Conc 32.9 g/dL (31-36); Mean Corpuscular Volume 77.7 fL (80-97); Mean Platelet Volume 6.8 fL (7.5-11.2); Nucleated Red Blood Cells % 0.1 %/100WBC (0.0-0.8); Platelet Count 572 10^3/uL (150-450); Red Blood Count 3.24 10^6/uL (3.63-4.92); Red Cell Distribution Width 16.3 % (12-17); White Blood Count 14.6 10^3/uL (3.8-11.8)
[2023-08-06 06:15] LABS: Calcium 8.4 mg/dL (8.6-10.3); Creatinine, Serum 0.65 mg/dL (0.51-0.95); Magnesium 2.1 mg/dL (1.9-2.7); Potassium 4.5 mmol/L (3.5-5.0); eGFR CKD-EPI 119.1 (>60)
[2023-08-06] MEDS ORDERED: Morphine 2 MG/ML SYRINGE IV PRN ×3 (07:09→09:21)
[2023-08-06 09:17] LABS: C Reactive Protein 31.27 mg/L (<8.01)
[2023-08-06] MEDS: Morphine 2 MG/ML SYRINGE IV PRN (11:54)
[2023-08-06] MEDS: Vancomycin Trough Check NOTE FOLLOW UP ONE (11:55)
[2023-08-06] MEDS: Vancomycin 1,250 MG in NS 0.9% 250 ml 250 ML IVPB SCH (21:36)
[2023-08-07 06:46] LABS: ABS Basophils 0.1 10^3/uL (0.0-0.1); ABS Eosinophils 0.2 10^3/uL (0.0-0.5); ABS Lymphocytes 3.7 10^3/uL (1.0-4.8); ABS Monocytes 0.7 10^3/uL (0.0-0.9); ABS Neutrophils 3.9 10^3/uL (1.5-7.6); ABS Nucleated RBC 0.01 10^3/ul; Eosinophil % 2.4 %; Hemoglobin 8.5 g/dL (11.5-14.3); Lymphocyte % 43.6 %; Mean Corpuscular Hemoglobin 25.5 pg (27-33); Mean Corpuscular Hgb Conc 32.7 g/dL (31-36); Mean Platelet Volume 6.9 fL (7.5-11.2); Nucleated Red Blood Cells % 0.1 %/100WBC (0.0-0.8); Platelet Count 563 10^3/uL (150-450); Red Blood Count 3.34 10^6/uL (3.63-4.92); Red Cell Distribution Width 16.6 % (12-17); White Blood Count 8.6 10^3/uL (3.8-11.8)
[2023-08-07] MEDS: Vancomycin 1,250 MG in NS 0.9% 250 ml 250 ML IVPB SCH (11:14)
[2023-08-07] MEDS ORDERED: Midazolam 2 mg/2 ml VIAL 1 mg/ml 2 ml VIAL (2 mg) ONE (17:21)
[2023-08-07] MEDS ORDERED: fentaNYL 100 mcg/2 ml 50 MCG/ML VIAL ONE ×2 (17:21→19:44)
[2023-08-07] MEDS ORDERED: Propofol 10 MG/ML 20 ML BTL ONE (17:21)
[2023-08-07] MEDS ORDERED: Rocuronium 50 mg VIAL 10 mg/ml 5 ml VIAL (50 mg) ONE (17:24)
[2023-08-07] MEDS ORDERED: Bupivacaine 0.25% SDV 30 ML ONE (18:47)
[2023-08-07] MEDS ORDERED: HYDROmorphone 0.5 MG/0.5 ML SYRINGE ONE (19:51)
[2023-08-07] MEDS ORDERED: HYDROmorphone 1 MG/1 ML SYRINGE ONE (20:58)
[2023-08-07] MEDS ORDERED: Ondansetron 4 mg VIAL 2 MG/ML 2 ml VIAL IV PRN (21:02)
[2023-08-07] MEDS ORDERED: fentaNYL 100 mcg/2 ml 50 MCG/ML VIAL IV PRN (21:02)
[2023-08-07] MEDS ORDERED: Naloxone 0.4 mg VIAL 0.4 mg/ml 1 ml VIAL IV PRN (21:02)
[2023-08-07] MEDS: HYDROmorphone 1 MG/1 ML SYRINGE IV SLOW PU ONE (21:10)
[2023-08-08] MEDS: ceFAZolin 2 GM PREMIX 2 GM/50 ML BAG IVPB SCH (11:44)
[2023-08-08] MEDS: Vancomycin Trough Check NOTE FOLLOW UP ONE (12:07)
[2023-08-08] MEDS: ceFAZolin 2 GM in NS PREMIX 2 GM/100 ML BAG IVPB SCH (12:07)
[2023-08-08] MEDS: ceFAZolin 2 GM PREMIX 2 GM/100 ML BAG IVPB SCH ×2 (12:07)
[2023-08-08 16:05] LABS: ABS Basophils 0.1 10^3/uL (0.0-0.1); ABS Eosinophils 0.1 10^3/uL (0.0-0.5); ABS Lymphocytes 4.5 10^3/uL (1.0-4.8); ABS Neutrophils 5.7 10^3/uL (1.5-7.6); ABS Nucleated RBC 0.01 10^3/ul; Eosinophil % 0.7 %; Hematocrit 22.3 % (35-45); Hemoglobin 7.5 g/dL (11.5-14.3); Lymphocyte % 39.5 %; Mean Corpuscular Hemoglobin 26.5 pg (27-33); Mean Corpuscular Hgb Conc 33.8 g/dL (31-36); Mean Corpuscular Volume 78.5 fL (80-97); Mean Platelet Volume 6.9 fL (7.5-11.2); Nucleated Red Blood Cells % 0.1 %/100WBC (0.0-0.8); Platelet Count 529 10^3/uL (150-450); Red Blood Count 2.84 10^6/uL (3.63-4.92); Red Cell Distribution Width 16.5 % (12-17); White Blood Count 11.4 10^3/uL (3.8-11.8)
[2023-08-08 16:53] LABS: C Reactive Protein 16.47 mg/L (<8.01); Calcium 8.8 mg/dL (8.6-10.3); Creatinine, Serum 0.9 mg/dL (0.51-0.95); Potassium 3.8 mmol/L (3.5-5.0); eGFR CKD-EPI 86.6 (>60)
[2023-08-08 17:53] LABS: Erythrocyte Sed Rate 91 mm/Hr (0-19)
[2023-08-09 05:33] LABS: ABS Basophils 0.1 10^3/uL (0.0-0.1); ABS Eosinophils 0.1 10^3/uL (0.0-0.5); ABS Lymphocytes 4.6 10^3/uL (1.0-4.8); Eosinophil % 1.5 %; Hematocrit 25.8 % (35-45); Hemoglobin 8.5 g/dL (11.5-14.3); Lymphocyte % 51.9 %; Mean Corpuscular Hemoglobin 26.1 pg (27-33); Mean Corpuscular Hgb Conc 33.1 g/dL (31-36); Mean Corpuscular Volume 78.8 fL (80-97); Platelet Count 582 10^3/uL (150-450); Red Blood Count 3.28 10^6/uL (3.63-4.92); Red Cell Distribution Width 16.9 % (12-17); White Blood Count 8.8 10^3/uL (3.8-11.8)
[2023-08-09] MEDS: Morphine 2 MG/ML SYRINGE IV PRN (14:31)
[2023-08-09] MEDS: Influenza vaccine *QUAD* *2023-24* 0.5 ML SYRINGE IM ONE (15:11)
[2023-08-09] MEDS: COVID VAC 23-24(12+)(Moderna) SYR 0.5 ML IM ONE (15:15)
[2023-08-10 05:53] LABS: Hemoglobin 8.6 g/dL (11.5-14.3); Mean Corpuscular Hemoglobin 25.8 pg (27-33); Mean Corpuscular Hgb Conc 32.9 g/dL (31-36); Mean Corpuscular Volume 78.5 fL (80-97); Mean Platelet Volume 7.1 fL (7.5-11.2); Platelet Count 650 10^3/uL (150-450); Red Blood Count 3.32 10^6/uL (3.63-4.92); Red Cell Distribution Width 16.6 % (12-17)
[2023-08-10 06:10] LABS: ABS Basophils 0.1 10^3/uL (0.0-0.1); ABS Eosinophils 0.2 10^3/uL (0.0-0.5); ABS Lymphocytes 7.6 10^3/uL (1.0-4.8); ABS Monocytes 1.2 10^3/uL (0.0-0.9); ABS Neutrophils 5.8 10^3/uL (1.5-7.6); ABS Nucleated RBC 0.01 10^3/ul; Eosinophil % 1.5 %; Lymphocyte % 50.7 %; Nucleated Red Blood Cells % 0.1 %/100WBC (0.0-0.8)
[2023-08-10 06:25] LABS: Calcium 8.8 mg/dL (8.6-10.3); Creatinine, Serum 0.85 mg/dL (0.51-0.95); Magnesium 1.9 mg/dL (1.9-2.7); Potassium 4.1 mmol/L (3.5-5.0); eGFR CKD-EPI 92.7 (>60)
[2023-08-10 14:06] LABS: C Reactive Protein 14.76 mg/L (<8.01)
[2023-08-10 14:22] VITALS: BP 147/77
== END 2023-08-10 14:40 | disposition home or self-care (01) | DRG 854 ==
LOC: ED 14:15 → SUATTDRO 16:32 → EDHOLD 16:32 → MED 21:07
PROVIDERS: ADMIT Student in an Organized Health Care Education/Training Program; ATTEND Student in an Organized Health Care Education/Training Program